=== PATIENT | male | born 1990 | race Two or more races ===

== ENCOUNTER → 2020-09-01 08:24 | Outpatient (BNVA) | payer OTHER, SELFPAY | PROVIDERS: PCP Physician Assistant; Visit Provider Urology | DX: N41.9 Inflammatory disease of prostate, unspecified (principal) | CPT/HCPCS: 99212 ==

== ENCOUNTER 2020-10-18 21:15 | Emergency (ER) | payer OTHER, SELFPAY ==
[2020-10-18 21:17] VITALS: BP 163/98; PULSE 100; RESP 18; TEMP 36.2; O2SAT 97; BMI 32.8
== END 2020-10-18 22:22 | disposition left against medical advice (07) ==
PROVIDERS: Emergency Provider Student in an Organized Health Care Education/Training Program
DX: R10.31 Right lower quadrant pain (principal)
CPT/HCPCS: 99282; 99283

== ENCOUNTER → 2020-11-03 10:29 | Outpatient (BNVA) | payer OTHER, SELFPAY | PROVIDERS: PCP Physician Assistant; Visit Provider Urology | DX: N41.9 Inflammatory disease of prostate, unspecified (principal) | CPT/HCPCS: 99212 ==

== ENCOUNTER 2020-11-10 08:55 | Outpatient (REF) | payer OTHER, SELFPAY ==
--- NOTE | 2020-11-10 08:59 | US_ITS ---
EXAMINATION: US ABDOMEN COMPLETE CLINICAL INFORMATION: Right lower quadrant pain. COMPARISON: CT abdomen and pelvis 03/02/2019. Ultrasound abdomen 01/19/2012. TECHNIQUE: Real-time imaging of the abdominal viscera. FINDINGS: PANCREAS: Normal. ABDOMINAL AORTA: The proximal, mid, and distal segments are normal in caliber. INFERIOR VENA CAVA: Visualized portions are normal. LIVER: Normal. The liver is normal in size. The liver contour is normal. Parenchymal echogenicity is normal. No focal hepatic lesion. There is no intrahepatic biliary duct dilatation seen. GALLBLADDER: The gallbladder wall thickness measures 0.19 cm in The gallbladder is physiologically distended without evidence of stones, sludge, polyps, wall thickening or pericholecystic fluid. COMMON BILE DUCT: Normal in caliber measuring 0.4 cm in diameter. RIGHT KIDNEY: There is anechoic cyst in midpole measuring 1.3 x 1.4 x 1.2 cm. No hydronephrosis or renal calculi. The kidney measures 11.3 cm in maximum dimension. LEFT KIDNEY: There is anechoic complex cyst midpole measuring 2.3 x 2.1 x 2.5 cm. The kidney measures 12.1 cm in maximum dimension. SPLEEN: Normal. The spleen measures 11.4 cm in maximum dimension. FREE FLUID: None. US/US abdomen complete IMPRESSION: Anechoic simple cyst midpole right kidney measuring 1.3 cm and a complex cyst midpole left kidney measuring 2.5 cm.
== END 2020-11-10 08:56 | disposition home or self-care (01) ==
LOC: HO.US 08:55
PROVIDERS: PCP Physician Assistant; Visit Provider Physician Assistant
DX: R10.30 Lower abdominal pain, unspecified (principal)
CPT/HCPCS: 76700

== ENCOUNTER → 2020-11-19 13:59 | Outpatient (BNVA) | payer OTHER, SELFPAY | PROVIDERS: Visit Provider Urology | DX: Z13.89 Encounter for screening for other disorder (principal) | CPT/HCPCS: 99212 ==

== ENCOUNTER → 2020-12-09 11:16 | Outpatient (BNVA) | payer OTHER, SELFPAY | PROVIDERS: PCP Physician Assistant; Visit Provider Urology ==

== ENCOUNTER → 2021-03-10 08:13 | Outpatient (BNVA) | payer OTHER, SELFPAY | PROVIDERS: PCP Physician Assistant; Visit Provider Urology ==

== ENCOUNTER 2021-08-16 10:07 | Outpatient (REF) | payer OTHER, SELFPAY | END 2021-08-16 10:08 | disposition home or self-care (01) | LOC: HO.LAB 10:07 | PROVIDERS: Visit Provider Hospitalist | DX: G44.83 Primary cough headache (principal); Z20.822 Contact with and (suspected) exposure to COVID-19 | CPT/HCPCS: U0003; U0005 ==

== ENCOUNTER → 2021-08-17 11:21 | Outpatient (BNVA) | payer OTHER, SELFPAY | PROVIDERS: Visit Provider Urology ==

== ENCOUNTER 2021-08-31 14:27 | Outpatient (REF) | payer OTHER, SELFPAY ==
--- NOTE | ~2021-08-31 | MR_ITS ---
EXAMINATION: MR PELVIS WITH AND WITHOUT INTRAVENOUS CONTRAST CLINICAL HISTORY: Inflammatory disorder of prostate and seminal vesicles with pain. COMPARISON: CT abdomen/pelvis dated from 03/02/2019 TECHNIQUE: Multiplanar multisequential MR images were obtained of the pelvis before and after intravenous contrast administration. 10 mL of Gadavist intravenous contrast were administered. FINDINGS: There is decreased T2 signal in the peripheral zone of the prostate which could be related with sequela of prostatitis. No intraprostatic collections or abscess are identified. The seminal vesicles are underdistended limiting their assessment. However, accounting for these limitations, no definite associated abnormalities are identified within the seminal vesicles. Specifically, there are no measurable lesions, abnormal enhancement or hemorrhagic products. There are no surrounding inflammatory changes. There are questionable engorged and prominent vessels in the scrotal sacs which could be related with varicoceles. The rectum and descending colon are underdistended limiting assessment of wall thickening and mural lesions. There are no associated surrounding inflammatory changes to suspect acute colitis or proctocolitis. The urinary bladder is mildly distended without focal abnormality. There is no adenopathy in the pelvis, small pelvic sidewall lymph nodes are nonspecific. No acute or aggressive osseous abnormalities. Lumbar spondylosis. Mild grade 1 retrolisthesis of L5 on S1 with associated disc bulge. Mild degenerative changes in the right SI joint with a few subchondral cysts. MR/MR pelvis wo/w con IMPRESSION: 1. Seminal vesicles are not optimally distended limiting their evaluation. However, accounting for these limitations, no definite abnormalities are identified within the seminal vesicles. 2. Decreased T2 signal in the peripheral zone of the prostate which is indeterminate and likely sequela of prostatitis. 3. Possible bilateral varicoceles, correlate with physical examination. 4. Lumbar spondylosis with retrolisthesis and disc bulging at L5-S1.
== END 2021-08-31 14:28 | disposition home or self-care (01) ==
LOC: HO.MRI 14:27
PROVIDERS: PCP Physician Assistant; Visit Provider Urology
DX: C61 Malignant neoplasm of prostate (principal); N49.0 Inflammatory disorders of seminal vesicle
CPT/HCPCS: 72197; A9585

== ENCOUNTER → 2021-09-20 09:41 | Outpatient (BNVA) | payer OTHER, SELFPAY | PROVIDERS: PCP Physician Assistant; Visit Provider Urology ==

== ENCOUNTER 2021-11-14 00:59 | Emergency (ER) | payer OTHER, SELFPAY ==
[2021-11-14 01:05] VITALS: BP 144/82; PULSE 84; RESP 18; TEMP 36.9; O2SAT 96; BMI 34.2
== END 2021-11-14 01:16 | disposition left against medical advice (07) ==
PROVIDERS: Emergency Provider Emergency Medicine; PCP Physician Assistant
DX: H93.8X2 Other specified disorders of left ear (principal)
CPT/HCPCS: 99281; 99282

== ENCOUNTER 2022-01-10 07:00 | Outpatient (RCR) | payer OTHER, SELFPAY ==
--- NOTE | 2021-10-20 13:42 | MHC.PT.EP ---
[facility] [place] Office [place] Office [place] Office [address] Audra Olivo [address] [facility] [phone] F: [phone] F: [phone] F: [phone] F: [phone] Physical Therapy Plan of Care Date of Evaluation: Date of Surgery: Diagnosis: Assessment: Pt was informed of examination process and he consented to full internal and external examination of his pelvic floor muscles. The patient arrived with subjective reports consistent with prostatitis and possible pudendal nerve entrapment because of his current pain presentation. External palpation was unremarkable. No painful palpation. Redness and irritation noted under his foreskin on the glans penis. The patient also had redness and irritation in his urethra opening. He was educated about avoiding soaps to this region, and to try a mild soap. A rectal exam was performed in order to assess the tone, strength, and coordination of his PFM. I was only able to examine the first and 2nd layer of the PFM due to the patient feeling uncomfortable and severe penile pain. However I was able to appreciate increased tone in his pelvic floor. I prescribed diaphragmatic breathing techniques to facilitate relaxation as well as a few gentle stretches. We will f/u in subsequent visits. Pt encouraged to do diaphragmatic breathing and other relaxation strategies such as guided imagery, positional relaxation before masturbation as a trial to see if this reduced pain with ejaculation. Pt will likely need manual therapy to PFM to promote relaxation. Frequency and Duration: The patient will be seen 1x/week Short Term Goals: 1. Pt education for diaphragmatic breathing in order to facilitate relaxation. 2. Pt education for improved posture and body mechanics to decrease pressure on the pelvic floor 3. Pt education on good hygiene soap use to avoid skin irritation. Senior Care Goals: 1. Pt to be able to ejaculate without pain 2. Pt to be able to participate in sexual activity without pelvic pain. 3. Pt to be able to urinate without pelvic pain. Treatment Plan: Modalities to reduce pain, spasms and effusion. Manual therapy to restore motion and function. Therapeutic exercise to improve strength and flexibility. Neuromuscular re-education for posture and balance. Therapeutic activities to return to functional activities of daily living. Electronically signed by: Please sign and return to therapist. Thank you for your referral.
== END 2022-02-14 14:12 | disposition home or self-care (01) ==
LOC: HO.PT 07:00
PROVIDERS: PCP Physician Assistant; Visit Provider Urology
DX: R10.2 Pelvic and perineal pain (principal); G89.29 Other chronic pain
CPT/HCPCS: 97110; 97112; 97140; 97161; 97530

== ENCOUNTER 2022-03-28 08:40 | Outpatient (REF) | payer OTHER, SELFPAY ==
[2022-03-28 09:48] LABS: Hematocrit 45.2 % (42.0-52.0); Hemoglobin 14.7 g/dl (14.0-18.0); Mean Corpuscular HGB Conc 32.5 g/dl (31.0-36.0); Mean Corpuscular Hemoglobin 28.1 pg (27.0-33.0); Mean Corpuscular Volume 86.4 fL (80.0-98.0); Mean Platelet Volume 9.6 fL (9.4-12.4); Platelet Count 279 X10*3/uL (160-400); Red Blood Count 5.23 X10*6/uL (4.60-5.80); Red Cell Distribution Width 12.6 % (11.0-16.0); White Blood Count 9.2 X10*3/uL (4.8-10.8)
[2022-03-28 09:56] LABS: Appearance Urine CLEAR; Color Urine YELLOW; Glucose Urine UA NEG (NEG); Leukocyte Esterase Urine NEG (NEG); Nitrite Urine NEG (NEG); Specific Gravity - Urine 1.025 (1.005-1.025); Urine Blood NEG (NEG); Urine Ketones NEG (NEG); Urine Protein NEG (NEG-TRACE)
[2022-03-28 10:25] LABS: Alanine Aminotransferase 30 U/L (0-40); Albumin Level 4.4 g/dL (3.5-5.0); Alkaline Phosphatase 81 U/L (39-117); Anion Gap 10 (12-20); Aspartate Amino Transferase 22 U/L (5-37); Bilirubin Total 1.4 mg/dL (0.0-1.0); Blood Urea Nitrogen 12 mg/dL (9-16); Calcium 9.4 mg/dL (8.4-10.2); Carbon Dioxide 25 mmol/L (22-29); Chloride 107 mmol/L (96-108); Cholesterol 183 mg/dL; Estimated Glomerular Filt Rate > 60; Glucose Fasting 93 mg/dL (60-99); HDL Cholesterol 44 mg/dL; LDL Cholesterol Calculated 92 mg/dl; Potassium 4.4 mmol/L (3.3-5.1); Sodium 138 mmol/L (135-145); Total Protein 7.4 g/dL (6.5-8.0); Triglycerides 239 mg/dL
[2022-03-28 10:33] LABS: Estimated Average Glucose 103 mg/dL; Hemoglobin A1c % 5.2 %
[2022-03-28 10:39] LABS: Urine Cytology See Pathology rpt
[2022-03-28 10:49] LABS: Prostate Specific Antigen Scr 0.39 ng/mL (<0.05-4.0); TSH reflex Free T4 1.52 uIU/mL (0.32-4.0)
[2022-03-28 14:34] LABS: CT PCR NOT DETECTED (Not Detect.); NG PCR NOT DETECTED (Not Detect.)
== END 2022-03-28 08:41 | disposition home or self-care (01) ==
LOC: HO.LAB 08:40
PROVIDERS: PCP Physician Assistant; Visit Provider Physician Assistant
DX: Z12.5 Encounter for screening for malignant neoplasm of prostate (principal); Z13.1 Encounter for screening for diabetes mellitus; E66.09 Other obesity due to excess calories; Z68.34 Body mass index [BMI] 34.0-34.9, adult; R82.90 Unspecified abnormal findings in urine; Z20.2 Contact with and (suspected) exposure to infections with a predominantly sexual mode of transmission; R30.0 Dysuria
CPT/HCPCS: 80053; 80061; 81003; 83036; 84153; 84443; 85027; 87086; 87491; 87591; 88112

== ENCOUNTER 2022-05-31 08:24 | Outpatient (REF) | payer OTHER, SELFPAY ==
--- NOTE | ~2022-05-31 | US_ITS ---
EXAMINATION: US PELVIS LIMITED (BLADDER) CLINICAL INFORMATION: Bad odor of urine. Prostatitis. COMPARISON: Pelvic MRI 08/31/2021. CT abdomen and pelvis 03/02/2019. TECHNIQUE: Real-time imaging of the bladder. FINDINGS: BLADDER: Well distended and normal. Bilateral ureteral jets are demonstrated. Prevoid bladder volume is 485 mL. Postvoid bladder volume is 22 mL. Prostate volume 22 mL. US/US bladder IMPRESSION: Normal appearance of the urinary bladder. Normal minimal post void residual.
== END 2022-05-31 08:25 | disposition home or self-care (01) ==
LOC: HO.HMGCX 08:24
PROVIDERS: PCP Physician Assistant; Visit Provider Physician Assistant
DX: R82.90 Unspecified abnormal findings in urine (principal)
CPT/HCPCS: 76857

== ENCOUNTER 2022-06-22 13:00 | Outpatient (RCR) | payer OTHER, SELFPAY ==
--- NOTE | 2022-05-02 10:16 | MHC.PT.EP ---
[facility] [place] Office [place] Office [place] Office [address] Audra Olivo [address] [phone] F: [phone] F: [phone] F: [phone] F: [phone] Physical Therapy Plan of Care Date of Evaluation: Date of Surgery: Diagnosis: pelvic pain Assessment: The patient arrived for his second round of Physical Therapy. He had to stop his last session due to moving. He has non relaxing pelvic floor. He has high resting tone in the 1st and 3nd layer of his pelvic floor. He did well relaxing with cues today which is improved from last bout of therapy. He had pain provocation with palpation of bilateral Obturator internus. He had penile pain provocation with palpation/manual pressure on his perineal body. His penile pain relaxes with proper diaphragmatic breathing. He needs practice on proper form of diaphragmatic breathing because he tends to clench. I reviewed how to use the pelvic wand with him and I introduced the idea of rectal dilation to help relax his pelvic floor since he tends to poorly tolerate pelvic wand. I recommended using wand daily. Frequency and Duration: The patient will be seen 2x/week x 6 weeks. Short Term Goals: 1. Improve his awareness of contraction vs relaxation of his PFM. 2. The patient to correctly coordinate diaphragmatic breathing. 3. The patient to increase his general exercise routine for central nervous system down training 4. Direct medical management to resolve fishy smelling urine. 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 Reduce pain with ejaculation. 2. Improve pain with urination 3. Manage pelvic pain with HEP. Treatment Plan: Modalities to reduce pain, spasms and effusion. Manual therapy to restore motion and function. Therapeutic exercise to improve strength and flexibility. Neuromuscular re-education for posture and balance. Therapeutic activities to return to functional activities of daily living. Electronically signed by: Please sign and return to therapist. Thank you for your referral.
--- NOTE | 2022-07-06 13:45 | MHC.PT.DC ---
[facility] [place] Office [place] Office [place] Office [address] Audra Olivo [address] [phone] F: [phone] F: [phone] F: [phone] F: [phone] Physical Therapy Discharge Report Diagnosis: pelvic pain Date of Surgery: NA Date of Evaluation: 05/02/22 Date of Discharge: 07/06/22 Treatments to Date: 4 Cancellations to Date: 1 No Shows to Date: 4 Discharge Status: Visit Non-compliance Discharge Summary: Jose attended only 4 PT visits. He as no showed his last 3 appointments. He is therefore being d/c from PT for non compliance. Electronically signed by: Nanette Lewis PT DPT Please sign and return to therapist. Thank you for your referral.
== END 2022-07-06 13:46 ==
LOC: HO.PT 13:00
PROVIDERS: PCP Physician Assistant; Visit Provider Urology
DX: R10.2 Pelvic and perineal pain (principal); G89.29 Other chronic pain
CPT/HCPCS: 97110; 97112; 97140; 97161; 97530

== ENCOUNTER 2022-06-26 00:44 | Emergency (ER) | payer OTHER, SELFPAY ==
[2022-06-26 00:46] VITALS: BP 152/100; PULSE 84; RESP 18; TEMP 36.7; O2SAT 97; BMI 34.2
--- NOTE | 2022-06-26 01:15 | ED.BACK ---
HPI - Back Pain/Injury General Chief Complaint: Back Pain/Injury Stated Complaint: Back pain Time Seen by Provider: 06/26/22 01:11 Source: patient Mode of arrival: ambulatory Limitations: no limitations History of Present Illness HPI Narrative: 32 yo male presents to the ER for middle and lower back pain after lifting heavy objects at work yesterday. He reports the pain worsened tonight and he was unable to sleep. He did not take any medications but he used topical icy hot with no improvement. He states the pain is worse on the right side and is worse with movement. He denies any radiation of the pain. No urinary symptoms. MD elicited complaint: back pain and back injury Onset (ago): day(s) (1) Timing: constant and progressively worsening Severity: moderate Pain scale (0-10): 7 Quality: stabbing and aching Location: right lower back Radiation: none Exacerbating factors: movement Relieving factors: none Associated symptoms: denies other symptoms Treatments prior to arrival: other medications Work related injury: Yes Related Data Previous Rx's Medication Instructions Recorded blood pressure test kit-large #1 ea 03/28/22 cyclobenzaprine 10 mg tablet 10 mg PO TID PRN muscle spasm #10 06/26/22 tabs ibuprofen 800 mg tablet 800 mg PO Q8H PRN pain #14 tabs 06/26/22 lidocaine 5 % topical patch 1 patch topical DAILY #15 ea 06/26/22 Allergies Allergy/AdvReac Type Severity Reaction Status Date / Time No Known Allergies Allergy Verified 06/26/22 00:46 [No Known Allergies*] Review of Systems Review of Systems: Constitutional: No Fever, No Chills Cardiovascular: No Chest Pain, No SOB, No Orthopnea, No Edema Respiratory: No Cough, No Sputum, No Wheezing, No dyspnea Gastrointestinal: No Nausea, No Vomiting, No Diarrhea, No abdominal Pain Genitourinary: No Dysuria, No Urinary Frequency, No Hematuria Musculoskeletal: No joint pain, + Myalgias Skin: No Skin Lesions, No rash Neuro: No Weakness, No Numbness, No Dizziness, No Headache Psych: No Anxiety/Panic, No Depression PMFSH Past Medical History Medical History Chronic prostatitis Orchalgia Testicle pain Urethritis Surgical History History of appendectomy Family History Family History Mother High blood pressure Father No problems noted. Social History Social History (Updated 03/28/22 @ 08:14 by Ronald Myrick PA-C) Housing: Apartment Alcohol intake: current Alcohol intake frequency: a few times a week Alcohol type: beer Patient Tobacco Use Status: Never used Tobacco e-Cigarette/Vaping Use: Never Used Second Hand Smoke Exposure: No Advance Directives: No Advance Directives Information Provided: Yes service: No Current occupational status: employed Current occupation: [employer] Current occupational exposures/hazards: No Cognitive needs: No Hearing needs: No Vision needs: No Physical Exam Vital Signs: Vital Signs: Last Vital Signs Temp 98.1 F 06/26/22 00:46 Pulse 84 06/26/22 00:46 Resp 18 06/26/22 00:46 BP 152/100 H 06/26/22 00:46 Pulse Ox 97 06/26/22 00:46 O2 Del Method 06/26/22 00:46 BMI result Body Mass Index 34.2 Appearance: Alert. Oriented X3. No acute distress. HEENT: normal external inspection Neck: Normal inspection. Neck supple. CVS: Normal heart rate and rhythm. Pulses normal. Respiratory: No respiratory distress. Breath sounds normal. Abdomen: Soft and nontender. +BS x4 Back: normal inspection, paraspinous muscle tenderness and spasm from middle thoracic area to the lumbar area. No midline tenderness. Skin: Skin warm and dry. Normal skin color. Normal skin turgor. No rashes. Extremities: No lower extremity edema. Neuro: Oriented X 3. No motor deficit. No sensory deficit. Steady gait Course Course Course Narrative: 32-year-old male presenting to the ER with back pain after doing heavy lifting at work. No falls or trauma. He has no red flag symptoms of low back pain. His pain does not radiate anion has palpable muscle spasm on examination. Will treat for muscle spasm and strain. Patient agrees with plan. Stable for DC. Discharge Plan Discharge Clinical Impression: Strain of lumbar region Patient Disposition: Home, Self-Care Instructions: Acute Low Back Pain (ED), Lower Back Exercises (ED) Additional Instructions: Your pain is most likely due to muscle strain and spasm. No bending, lifting or twisting. Use ice several times per day for 20 minutes at a time for the next 48 hours and then change to heat. Take medications as prescribed to help with pain and discomfort. Follow up with your Primary Care Doctor this week. If your pain worsens, if you develop new numbness, tingling, weakness, loss of function or incontinence call 911 or come back to the ER right away for evaluation. Prescriptions: New cyclobenzaprine 10 mg tablet 10 mg PO TID PRN (Reason: muscle spasm) Qty: 10 0RF ibuprofen 800 mg tablet 800 mg PO Q8H PRN (Reason: pain) Qty: 14 0RF lidocaine 5 % adhesive patch,medicated 1 patch topical DAILY Qty: 15 0RF Rx Instructions: leave on most painful area for up to 12 hrs No Action (DME) blood pressure test kit-large Kit See Rx Instructions .Route Qty: 1 0RF Rx Instructions: As directed Referrals: Ronald Myrick PA-C [Primary Care Provider] - Stand Alone Forms: Work/School Release
[2022-06-26] MEDS: Acetaminophen 325 MG TABLET 975 MG PO (01:52)
[2022-06-26] MEDS: Cyclobenzaprine HCl 10 MG TABLET PO (01:52)
[2022-06-26] MEDS: Ketorolac Tromethamine 30 MG/ML VIAL IM (01:53)
[2022-06-26 02:02] VITALS: BP 146/94; PULSE 86; RESP 19; O2SAT 96
== END 2022-06-26 02:04 | disposition home or self-care (01) ==
PROVIDERS: Emergency Provider Emergency Medicine; PCP Physician Assistant
DX: S39.012A Strain of muscle, fascia and tendon of lower back, initial encounter (principal); X50.0XXA Overexertion from strenuous movement or load, initial encounter; Y93.89 Activity, other specified; Y92.219 Unspecified school as the place of occurrence of the external cause; Y99.0 Civilian activity done for income or pay
CPT/HCPCS: 96372; 99283; 99284; J1885

== ENCOUNTER 2022-10-03 11:20 | Outpatient (REF) | payer OTHER, SELFPAY ==
[2022-10-04 13:20] LABS: CT PCR NOT DETECTED (Not Detect.); NG PCR NOT DETECTED (Not Detect.)
== END 2022-10-03 11:21 | disposition home or self-care (01) ==
LOC: HO.LNP 11:20
PROVIDERS: Visit Provider Internal Medicine
DX: N34.2 Other urethritis (principal)
CPT/HCPCS: 87491; 87591

== ENCOUNTER → 2022-11-03 11:28 | Outpatient (BNVA) | payer OTHER, SELFPAY | PROVIDERS: PCP Physician Assistant; Visit Provider Urology | DX: R10.2 Pelvic and perineal pain (principal) ==

== ENCOUNTER 2023-02-27 07:46 | Outpatient (REF) | payer OTHER, SELFPAY ==
[2023-03-06 11:30] LABS: Testosterone, Free 109.5 pg/mL (35.0-155.0); Testosterone, Total 421 ng/dL (250-1100)
== END 2023-02-27 07:47 | disposition home or self-care (01) ==
LOC: HO.LAB 07:46
PROVIDERS: PCP Physician Assistant; Visit Provider Urology
DX: N52.9 Male erectile dysfunction, unspecified (principal)
CPT/HCPCS: 36415; 84402; 84403

== ENCOUNTER → 2023-03-09 13:10 | Outpatient (BNVA) | payer OTHER, SELFPAY | PROVIDERS: PCP Physician Assistant; Visit Provider Urology ==

== ENCOUNTER 2024-02-08 14:58 | Outpatient (AMB) | payer OTHER, SELFPAY ==
--- NOTE | 2024-02-08 15:05 | A.OFFVIS_ITS ---
Intake Intake Visit Reasons: follow up Intake Note: Patient presents today for a follow-up medications: cialis Blood thinners: none Java Lead Developer Required: No Accompanied by: Self / Same As Patient Allergies No Known Allergies [No Known Allergies*] Allergy (Verified 02/08/24 15:06) Medication List - Last Reconciled 02/08/24 by Rachell Nelson MD blood pressure test kit-large As directed tadalafil (Cialis) 20 mg orally 2x a week as needed; tadalafil (Cialis) 5 mg PO DAILY HPI HPI Comments History of Present Illness Details 02/08/2024--Jaimie is here in follow-up he is prescribed Cialis daily for erectile disorder, he has been evaluated for symptoms of pelvic floor spasm. He states he is doing well voiding. Denies pelvic pain. He states he had unprotected sexual contact about 3 months ago in concerned about STD exposure and wants testing. Denies urinary symptoms of dysuria discharge. Plan STD check. Reinforced behavioral modification excessive caffeine or dietary bladder irritants. Continue Cialis 5 mg daily and 20 mg prn Review of chart: 11/03/22--Richie is a pleasant Hispan ic male. He is a patient of Dr. Myrick. He is seen for the following conditions - erectile dysfunction Performance anxie ty Prescribed daily tadalafil, prostatitis, chronic pelvic floor pain. He states he ran out of the cialis 5 m g and missed most of the PT appointments due to his work schedule, but he is still having pain and wants to be re-referred to PT Evaluation -- UA - no signs of infection. Plan - script for cialis 5 mg and 20 mg 2 x/week prn, refer to another Pelvic floor PT. Recheck testosterone levels. Imaging: MRI findings: 08/25 MRI no evidence of seminal vesiculitis or bladder changes testicular ultrasound, reported as, ..., normal epididymis, normal parenchyma and normal flow. Testicular/Scotal orchalgia-swelling: DNA analysis 10/2020 no growth Prostatitis type symptoms present throughout most of 2019 in into 2020 Has been treated with recurring courses of antibiotics DNA analysis has been done on prostatic fluid with Enterococcus located - Enterococcus faecalis and Streptococcu s. 03/09/23-- Shai is a 32-year-old male who presents to the office for discussion of testosterone lab results. HPI as above also the patient was given antibiotics for diagnosis of chronic prostatitis and script for Cialis was given during his last visit. States benefits with the therapy. The patient is having improvement in erections. The patient was refereed to pelvic floor therapist for chronic pelvic floor pain and was not given appointment by the PT office. Evaluation today: Blood: 25 Flo/uL, leukocytes: negative. Blood work results reviewed-- 02/27/23--total testosterone--421, free testosterone--109 Plan: Discussed to limit alcohol consumption. Continue Cialis 5 mg. Referral was written for physical therapist. Follow-up after 9 months. 02/08/24--Plan STD check. Reinforced beha vioral modification excessive caffeine or dietary bladder irritants. Continue Cialis 5 mg daily and 20 mg prn PFSH Medical History Orchalgia Urethritis Testicle pain Chronic prostatitis Surgical History History of appendectomy Family History Mother High blood pressure Father No problems noted. Social History Housing: Apartment Alcohol intake: current Alcohol intake frequency: a few times a week Alcohol type: beer Patient Tobacco Use Status: Never used Tobacco e-Cigarette/Vaping Use: Never Used Second Hand Smoke Exposure: No service: No Current occupational status: employed Current occupation: [employer] Current occupational exposures/hazards: No Cognitive needs: No Hearing needs: No Vision needs: No Review of Systems Const All systems reviewed & are unremarkable except as noted in HPI and below Reports no additional complaints Eyes Reports no additional complaints ENT Reports no additional complaints Card Reports no additional complaints Resp Reports no additional complaints GI Reports no additional complaints Reports as per HPI Musc Reports no additional complaints Skin/Breast Reports system reviewed and no additional complaints, except as documented Neuro Reports no additional complaints Psych Reports no additional complaints Endo Reports no additional complaints Thomas/Lymph Reports no additional complaints Aller/Immun Reports no additional complaints Results AMB Urinalysis, Automated UA Leukoctes 0 Amauri/uL Last Edit by Minh Díaz Ariella on 02/08/24 15:12 UA Nitrite Negative Last Edit by Minh Díaz Ariella on 02/08/24 15:12 UA Urobilinogen 0.2 mg/dL Last Edit by Minh Díaz A on 02/08/24 15:1 2 UA Protein 0 mg/dL Last Edit by Minh Díaz Ariella on 02/08/24 15:12 UA pH 7.0 Last Edit by Minh Díaz [facility] on 02/08/24 15:12 UA Blood 0 Flo/uL Last Edit by Minh Díaz Ariella on 02/08/24 15:12 UA Specific [place] 7.0 Last Edit by Minh Díaz [facility] on 02/08/24 15:12 UA Ketone Negative Last Edit by Minh Díaz Ariella on 02/08/24 15:12 UA Bilirubin 0 mg/dL Last Edit by Minh Díaz [facility] on 02/08/24 15:12 UA Glucose 0 mg/dL Last Edit by Minh Díaz [facility] on 02/08/24 15:12 Results Reviewed Results Reviewed: Laboratory Last Values Urine pH (Auto) 7.0 02/08/24 15:07 Specific [place] (Auto) 7.0 02/08/24 15:07 Urine Protein (Auto) 0 mg/dL 02/08/24 15:07 Glucose (UA)(Auto) 0 mg/dL 02/08/24 15:07 Urine Ketones (Auto) Negative 02/08/24 15:07 Urine Blood (Auto) 0 Flo/uL 02/08/24 15:07 Urine Nitrite (Auto) Negative 02/08/24 15:07 Urine Bilirubin (Auto) 0 mg/dL 02/08/24 15:07 Urine Urobilinogen (Auto) 0.2 mg/dL 02/08/24 15:07 Leukocyte Esterase (Auto) 0 Amauri/uL 02/08/24 15:07 Assessment & Plan Assessment & Plan (1) Possible exposure to STD: Code(s): Z20.2 - Contact with and (suspected) exposure to infections with a predominantly sexual mode of transmission (2) Spastic pelvic floor syndrome: Code(s): 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 Reinforced behavioral modification excessive caffeine or dietary bladder irritants. Continue Cialis 5 mg daily and 20 mg prn Orders: Orders Syphilis Screen Today Z20.2 - Contact with and (suspected) exposure to infections with a predominantly sexual mode of transmission Hepatitis B Surface Antigen Today Z20.2 - Contact with and (suspected) exposure to infections with a predominantly sexual mode of transmission Herpes Simplex Virus Ab IgG Today Z20.2 - Contact with and (suspected) exposure to infections with a predominantly sexual mode of transmission AMB Urinalysis Automated Today Z13.9 - Encounter for screening, unspecified HIV Ab/Ag Today Z20.2 - Contact with and (suspected) exposure to infections with a predominantly sexual mode of transmission Hepatitis C Antibody Today Z20.2 - Contact with and (suspected) exposure to infections with a predominantly sexual mode of transmission Medications: Refilled tadalafil (Cialis) 20 mg orally 2x a week as needed; 30 tabs 3RF tadalafil (Cialis) 5 mg PO DAILY 90 tabs 3RF Patient Instructions: The patient had an opportunity to ask questions regarding treatment plan. All questions were answered. No major barriers to understanding were identified. The patient expressed understanding and agreement with the above treatment plan. The patient is aware they should contact our office by phone for worsening of their current condition or the appearance of new symptoms. Compliance is encouraged with any medications and followup testing that is ordered. It is a privilege to be allowed the opportunity to participate in the urologic care of your patient. If you have any questions or concerns regarding treatment for the above conditions please do not hesitate to contact me. The office telephone contact is [phone]. This note is constructed in part using voice recognition software. While every effort has been made to ensure accuracy hypercil core transformer assembler errors may have been included. 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
== END 2024-02-08 15:41 | disposition home or self-care (01) ==
PROVIDERS: Visit Provider Urology
DX: Z20.2 Contact with and (suspected) exposure to infections with a predominantly sexual mode of transmission (principal); R19.8 Other specified symptoms and signs involving the digestive system and abdomen; N52.1 Erectile dysfunction due to diseases classified elsewhere; Z13.9 Encounter for screening, unspecified
CPT/HCPCS: 99214

== ENCOUNTER 2024-02-08 14:58 | Outpatient (REF) | payer OTHER, SELFPAY ==
[2024-02-08 18:19] LABS: CT PCR NOT DETECTED (Not Detect.); NG PCR NOT DETECTED (Not Detect.)
== END 2024-02-08 14:59 | disposition home or self-care (01) ==
LOC: HO.LAB 14:58
PROVIDERS: Visit Provider Urology
DX: Z20.2 Contact with and (suspected) exposure to infections with a predominantly sexual mode of transmission (principal); R19.8 Other specified symptoms and signs involving the digestive system and abdomen; N52.1 Erectile dysfunction due to diseases classified elsewhere
CPT/HCPCS: 0353U; 81003

== ENCOUNTER 2024-02-13 07:48 | Outpatient (REF) | payer OTHER, SELFPAY ==
[2024-02-13 10:11] LABS: Syphilis Screen Nonreactive (Nonreactive)
[2024-02-13 10:13] LABS: HBsAGNum1 0.34 S/CO (0.00-0.99); HIV AB/AG Nonreactive (Nonreactive); HIV Num 1 0.06 S/CO (0.00-0.99); Hepatitis B Surface Antigen Negative (Negative); ~HepC Num1 0.17 S/CO (0.00-0.79); ~Hepatitis C Antibody Nonreactive (Nonreactive)
[2024-02-14 12:18] LABS: Herpes Simplex Type 2 IgG <0.90 index
== END 2024-02-13 07:49 | disposition home or self-care (01) ==
LOC: HO.LAB 07:48
PROVIDERS: PCP Physician Assistant; Visit Provider Urology
DX: Z11.4 Encounter for screening for human immunodeficiency virus [HIV] (principal); Z20.2 Contact with and (suspected) exposure to infections with a predominantly sexual mode of transmission
CPT/HCPCS: 36415; 86695; 86696; 86780; 86803; 87340; 87389

== ENCOUNTER 2024-05-26 11:53 | Emergency (ER) | payer BC, SELFPAY ==
--- NOTE | ~2024-05-26 | XR_ITS ---
EXAMINATION: XR CHEST CLINICAL INFORMATION: Chest pain COMPARISON: RIBS and chest 03/21/2014 TECHNIQUE: 2 views of the chest were obtained. FINDINGS: No significant abnormality is noted involving the heart, lungs, mediastinum, bony thorax or soft tissues. XR/XR chest 2V IMPRESSION: Unremarkable examination.
--- NOTE | 2024-05-26 11:58 | ECG_ITS ---
Test Reason : palpatations Blood Pressure : / mmHG Vent. Rate : 067 BPM Atrial Rate : 067 BPM P-R Int : 152 ms QRS Dur : 146 ms QT Int : 418 ms P-R-T Axes : 010 026 006 degrees QTc Int : 441 ms Normal sinus rhythm Right bundle branch block Abnormal ECG When compared with ECG of 25-FEB-2009 14:42, Right bundle branch block has replaced Incomplete right bundle branch block Referred By: Maribel Hahn Electronically Signed By:NIMCO RIVERA
[2024-05-26 12:11] VITALS: BP 145/73; PULSE 74; RESP 18; TEMP 36.8; O2SAT 96; BMI 36.3
--- NOTE | 2024-05-26 12:12 | ED_ITS ---
HPI - Chest Pain General Chief Complaint: Arrhythmia/Palpitations Stated Complaint: heart palpitations? light headed this AM Time Seen by Provider: 05/26/24 17:38 Source: patient Mode of arrival: ambulatory Limitations: no limitations History of Present Illness ED Provider: Dr. Rose Mary Varela HPI narrative: Patient comes to the emergency room complaining of palpitations. Patient states that over the last couple of days, he feels a bit lightheaded when they happened. No chest pain. Patient attributes his symptoms to a large intake of caffeine. Time, patient has no palpitations chest pain or shortness of breath or dizziness. Related Data Previous Rx's ?Medication ?Instructions ?Recorded blood pressure test kit-large #1 ea 03/28/22 tadalafil 20 mg tablet (Cialis) 20 mg PO .COMPLEX #30 tabs 02/08/24 tadalafil 5 mg tablet (Cialis) 5 mg PO DAILY #90 tabs 02/08/24 Allergies Allergy/AdvReac Type Severity Reaction Status Date / Time No Known Allergies Allergy Verified 05/26/24 12:15 [No Known Allergies*] Review of Systems 2 Review of Systems: Constitutional : No Weight loss, No Fever, No Chills, No Night Sweats, No Fatigue, No Malaise ENT/Mouth : No Hearing loss, No Ear Pain, No Nasal Congestion, No Sinus Pain, No Hoarseness, No sore throat, No Rhinorrhea, No Swallowing Difficulty Eyes: No Eye Pain, No Swelling, No Redness, No Foreign Body, No Discharge, No Vision Changes Cardiovascular : No Chest Pain, No SOB, No Dyspnea on Exertion, No Orthopnea, No Edema, complaining of intermittent Palpitations Respiratory : No Cough, No Sputum, No Wheezing, No Smoke Exposure, No Dyspnea Gastrointestinal : No Nausea, No Vomiting, No Diarrhea, No Constipation, No abdominal Pain, No Hematochezia, No Melena Genitourinary : no irregular bleeding, No Dysuria, No Urinary Frequency, No Hematuria, No Urinary Incontinence, No Urgency, No Flank Pain, No Urinary Flow Changes, No Hesitancy Musculoskeletal : No joint pain, No Myalgias, No Joint Swelling Skin : No Skin Lesions, No rash Neuro : No Weakness, No Numbness, No Paresthesias, No Loss of Consciousness, No Dizziness, No Headache Psych : No Anxiety/Panic, No Depression, No SI/HI/AH/VH, No Social Issues, Heme/Lymph: No Bruising, No Bleeding,No Lymphadenopathy Endocrine : No Polyuria, No Polydipsia, No Temperature Intolerance [facility] Past Medical History Medical History Orchalgia Urethritis Testicle pain Chronic prostatitis Surgical History History of appendectomy Family History Family History Mother High blood pressure Father No problems noted. Social History Social History Housing: Apartment Alcohol intake: current Alcohol intake frequency: a few times a week Alcohol type: beer Patient Tobacco Use Status: Never used Tobacco Smoked in Last 30 Days: No e-Cigarette/Vaping Use: Never Used Second Hand Smoke Exposure: No Use of substances other than those prescribed or required for medical reasons: No Advance Directives: No Advance Directives Information Provided: No Do you have a plan to hurt others: No Plan service: No Current occupational status: employed Current occupation: [employer] Current occupational exposures/hazards: No Cognitive needs: No Hearing needs: No Vision needs: No Physical Exam 2 Vital Signs: Vital Signs: Last Vital Signs Temp 98.1 F 05/26/24 17:23 Pulse 61 05/26/24 18:48 Resp 15 05/26/24 17:23 BP 140/78 H 05/26/24 18:48 Pulse Ox 95 05/26/24 17:23 O2 Del Method Room Air 05/26/24 17:23 BMI result Body Mass Index 36.3 Const: Other: Appearance: Alert. Oriented X3. No acute distress. Eyes: Pupils equal, round and reactive to light. ENT: Pharynx normal. Neck: Normal inspection. Neck supple. No lymph nodes noted. No crepitus CVS: Normal heart rate and rhythm. Pulses normal. Normal S1 and S2 Respiratory: No respiratory distress. Breath sounds normal. No Wheezing. No rales Abdomen: Soft and nontender. No rigidity. No distention. Skin: Skin warm and dry. Normal skin color. Normal skin turgor. Extremities: No lower extremity edema. No Lacerations. No Rash Neuro: Oriented X 3. No motor deficit. No sensory deficit. Moving all extremities. No slurred speech. CN 2 through 12 grossly intact Psych: calm, cooperative, normal affect Course Course Course Narrative: This is an RME: Additional HPI, ROS, PE not included below will be deferred to primary provider. RME assessment and note performed by: Maribel Hahn PA-C This is a [id number], with no known medical problems, who presents to the ER with a complaint of lightheadedness and palpitations x 2 months. Endorsing chest pain and SOB. Symptoms come and go. Reports that he is drinking 400mg of caffeine per day. Smokes hookah on the weekend. No other drug use. Plan: Labs, EKG, CXR, further ER evaluation needed. Medical Decision Making Medical Decision Making [facility] Narrative: -my interpretation of EKG: Normal sinus rhythm, right bundle branch block, heart rate 67, no ST segment elevation, nonspecific T-wave inversion in lead III, QTC 441 -my interpretation of labs, normal hematology, chemistry, LFTs -my interpretation of chest x-ray, no obvious abnormality. -I discussed with the patient that he can slowly decrease his intake of caffeine and see if he has any further palpitations. If he continues having palpitations, to follow-up with his primary care physician, as he may need a Holter monitor evaluation. -orthostatic vitals: Negative Differential Diagnosis Differential Diagnoses: The differential diagnosis associated with the presentation includes (Anxiety, palpitations, SVT) Admission/Observation Consideration of admission/observation: Escalation of care including admission/observation considered (Given patient's symptoms, observation was considered) Lab Data [facility] Lab Attestation statement: I reviewed the patient's lab results. 05/26/24 12:28 05/26/24 12:28 Labs: Lab Results 05/26/24 Range/Units 12:28 WBC 8.1 (4.8-10.8) X10*3/uL RBC 4.86 (4.60-5.80) X10*6/uL Hgb 14.0 (14.0-18.0) g/dl Hct 41.6 L (42.0-52.0) % MCV 85.6 (80.0-98.0) fL MCH 28.8 (27.0-33.0) pg MCHC 33.7 (31.0-36.0) g/dl RDW 12.6 (11.0-16.0) % Plt Count 249 (160-400) X10*3/uL MPV 9.2 L (9.4-12.4) fL Immature Gran % (Auto) 0.4 (0.0-0.4) % Neut % (Auto) 52.1 (45-73) % Lymph % (Auto) 34.8 (20-40) % [place] % (Auto) 8.4 (2-11) % Eos % (Auto) 3.1 (0-4) % Baso % (Auto) 1.2 (0-2) % Lymph # (Auto) 2.8 (1.2-4.9) X10*3/uL [place] # (Auto) 0.7 (0.1-1.2) X10*3/uL Eos # (Auto) 0.3 (0.0-0.4) X10*3/uL Baso # (Auto) 0.1 (0.0-0.2) X10*3/uL Abs Immat Gran (auto) 0.03 (0.00-0.03) X10*3/uL Absolute Neuts (auto) 4.2 (2.0-8.3) x10*3/uL Absolute Nucleated RBC 0.000 (0.0-0.012) X10*3/uL Nucleated RBC % (auto) 0.0 (0.0-0.2) /100WBC PT 12.3 (11.1-13.3) SEC INR 1.0 (0.9-1.1) Sodium 137 (135-145) mmol/L Potassium 3.8 (3.3-5.1) mmol/L Chloride 108 (96-108) mmol/L Carbon Dioxide 23 (22-29) mmol/L Anion Gap 10 L (12-20) BUN 14 (9-16) mg/dL Creatinine 1.06 (0.5-1.4) mg/dL Estim Creat Clear Calc 128.4 Estimated GFR > 60 Random Glucose 91 (60-115) mg/dL Calcium 9.2 (8.4-10.2) mg/dL Magnesium 2.1 (1.6-2.6) mg/dL Total Bilirubin 1.2 H (0.0-1.0) mg/dL Direct Bilirubin 0.2 (0.0-0.5) mg/dL AST 22 (5-37) U/L ALT 31 (0-40) U/L Alkaline Phosphatase 70 (39-117) U/L Troponin I High Sens < 2.7 (<3.5-35.0) ng/L Total Protein 7.0 (6.5-8.0) g/dL Albumin 4.2 (3.5-5.0) g/dL Lipase 40 (8-78) U/L TSH 1.28 (0.32-4.0) uIU/mL Independent Interpretation I performed an independent interpretation of an: EKG and Plain X-Ray Radiology Impression Discussion of test interpretation with radiology: I have reviewed the radiologist's reading. Radiologist Impression: FINDINGS: No significant abnormality is noted involving the heart, lungs, mediastinum, bony thorax or soft tissues. XR/XR chest 2V IMPRESSION: Unremarkable examination. Critical Care Time Critical Care Time Critical Care Time: Yes Total Critical Care Time: 30 Attestation: I have personally provided critical care time. Time includes review of lab data, radiology results, discussion with consultants, and monitoring for potential decompensation. Intervention performed as documented. Discharge Plan Discharge Clinical Impression: Palpitations Patient Disposition: Home, Self-Care Instructions: Heart Palpitations (ED) Additional Instructions: Please follow-up with your primary care physician tomorrow. If you have any worsening or new symptoms, please return to the emergency room or call 911 Prescriptions: No Action (DME) blood pressure test kit-large Kit See Rx Instructions .Route Qty: 1 0RF Rx Instructions: As directed tadalafil [Cialis] 5 mg tablet 5 mg PO DAILY Qty: 90 3RF tadalafil [Cialis] 20 mg tablet 20 mg PO .COMPLEX Qty: 30 3RF Rx Instructions: 20 mg orally 2x a week as needed; Print Language: Icelandic
[2024-05-26 12:32] LABS: MANUAL DIFF FLAG NO
[2024-05-26 12:35] LABS: Basophils Absolute Auto 0.1 X10*3/uL (0.0-0.2); Basophils Percent Auto 1.2 % (0-2); Eosinophils Absolute Auto 0.3 X10*3/uL (0.0-0.4); Eosinophils Percent Auto 3.1 % (0-4); Hematocrit 41.6 % (42.0-52.0); Imm Gran Abs Auto 0.03 X10*3/uL (0.00-0.03); Imm Gran Pct Auto 0.4 % (0.0-0.4); Lymphocytes Absolute Auto 2.8 X10*3/uL (1.2-4.9); Lymphocytes Percent Auto 34.8 % (20-40); Mean Corpuscular HGB Conc 33.7 g/dl (31.0-36.0); Mean Corpuscular Hemoglobin 28.8 pg (27.0-33.0); Mean Corpuscular Volume 85.6 fL (80.0-98.0); Mean Platelet Volume 9.2 fL (9.4-12.4); Monocytes Absolute Auto 0.7 X10*3/uL (0.1-1.2); Monocytes Percent Auto 8.4 % (2-11); Neutrophils Absolute Auto 4.2 x10*3/uL (2.0-8.3); Neutrophils Percent Auto 52.1 % (45-73); Platelet Count 249 X10*3/uL (160-400); Red Blood Count 4.86 X10*6/uL (4.60-5.80); Red Cell Distribution Width 12.6 % (11.0-16.0); White Blood Count 8.1 X10*3/uL (4.8-10.8)
[2024-05-26 12:39] LABS: Prothrombin Time 12.3 SEC (11.1-13.3)
[2024-05-26 12:55] LABS: Alanine Aminotransferase 31 U/L (0-40); Albumin Level 4.2 g/dL (3.5-5.0); Alkaline Phosphatase 70 U/L (39-117); Anion Gap 10 (12-20); Aspartate Amino Transferase 22 U/L (5-37); Bilirubin Direct 0.2 mg/dL (0.0-0.5); Bilirubin Total 1.2 mg/dL (0.0-1.0); Blood Urea Nitrogen 14 mg/dL (9-16); Calcium 9.2 mg/dL (8.4-10.2); Carbon Dioxide 23 mmol/L (22-29); Chloride 108 mmol/L (96-108); Creatinine Clr Calc Pharmacy 128.4; Estimated Glomerular Filt Rate > 60; Glucose Random 91 mg/dL (60-115); Lipase 40 U/L (8-78); Magnesium 2.1 mg/dL (1.6-2.6); Potassium 3.8 mmol/L (3.3-5.1); Sodium 137 mmol/L (135-145)
[2024-05-26 12:57] LABS: Troponin-I High Sensitivity < 2.7 ng/L (<3.5-35.0)
[2024-05-26 13:09] LABS: TSH reflex Free T4 1.28 uIU/mL (0.32-4.0)
[2024-05-26 17:23] VITALS: BP 144/77; PULSE 60; RESP 15; TEMP 36.7; O2SAT 95
[2024-05-26 18:47] VITALS: BP 137/78; PULSE 68
[2024-05-26 18:48] VITALS: BP 139/80; BP 140/78; PULSE 57; PULSE 61
[2024-05-26 19:42] VITALS: BP 139/80; PULSE 61; RESP 16; TEMP 36.7; O2SAT 95
== END 2024-05-26 19:43 | disposition home or self-care (01) ==
PROVIDERS: Physician Assistant Medical; Emergency Provider Emergency Medicine; PCP Physician Assistant
DX: R07.89 Other chest pain (principal); R00.2 Palpitations; Z79.899 Other long term (current) drug therapy
CPT/HCPCS: 36415; 71046; 80048; 80076; 83690; 83735; 84443; 84484; 85025; 85610; 93005; 99283; 99285

== ENCOUNTER → 2024-05-26 11:58 | Outpatient (BNV) | payer BC, SELFPAY | PROVIDERS: PCP Physician Assistant; Visit Provider Internal Medicine | DX: R94.31 Abnormal electrocardiogram [ECG] [EKG] (principal) | CPT/HCPCS: 93010 ==

== ENCOUNTER 2024-06-03 08:23 | Outpatient (AMB) | payer BC, SELFPAY ==
[2024-06-03 08:40] VITALS: BP 130/82; PULSE 61; O2SAT 96; BMI 35.8
--- NOTE | 2024-06-03 08:40 | A.OFFPC_ITS ---
Vital Signs 06/03/24 08:40 Height 5 ft 11 in Weight 257 lb BMI 35.8 BP 130/82 Blood Pressure Location Lt brachial Position Sitting Pulse 61 Pulse Source Pulse Oximeter Pulse Oximetry (%) 96 Oxygen Delivery Method Room Air Intake Visit Reasons: [place] [facility] [place] Heart Palpatations, Lightheadedness Allergies No Known Allergies [No Known Allergies*] Allergy (Verified 06/03/24 08:41) Tobacco use date assessed: 06/03/24 Dental Screening Dental Screen Date: 06/03/24 Did you have a dental visit in the last 12 months?: Yes Did you have a dental problem in the last 6 months where you did not have access to dental care?: No Was dental information given to patient?: Patient has dentist HPI HPI Comments History of Present Illness Details 33 y/o male patient who presents to the clinic today for EDF. He [place] and [place] [facility] [place]and light[place]. He does Admit to drinking lots of Caffeine with Energy Drinks daily. He also admit to being under tremendous stress in life - he works 3 jobs. He has also been going to the Gym daily for Cardio. Today Pt reports that symptoms have subsided. ECG and Chest Xray normal. [facility] Medical History Orchalgia Urethritis Testicle pain Chronic prostatitis Surgical History History of appendectomy Family History Mother High blood pressure Father No problems noted. Social History Housing: Apartment Alcohol intake: current Alcohol intake frequency: a few times a week Alcohol type: beer Patient Tobacco Use Status: Never used Tobacco Tobacco use type: Cigarette e-Cigarette/Vaping Use: Never Used Second Hand Smoke Exposure: No service: No Current occupational status: employed Current occupation: [employer] Current occupational exposures/hazards: No Cognitive needs: No Hearing needs: No Vision needs: No Questionnaire PHQ-9 Over the last 2 weeks, how often have you been bothered by any of the following problems? 1. Little interest or pleasure in doing things: not at all 2. Feeling down, depressed, or hopeless: not at all 3. Trouble falling or staying asleep, or sleeping too much: not at all 4. Feeling tired or having little energy: not at all 5. Poor appetite or overeating: not at all 6. Feeling bad about yourself - or that you are a failure or have let yourself or your family down: not at all 7. Trouble concentrating on things, such as reading the newspaper or watching television: not at all 8. Moving or speaking so slowly that other people could have noticed. Or the opposite - being so fidgety or restless that you have been moving around a lot more than usual: not at all 9. Thoughts that you would be better off or of hurting yourself in some way: not at all Total score: 0 Depression Screening Interpretation: Negative Depression Screening Done: Yes Source: Developed by Drs. Rodrick Mackay, Elis Velasquez, Ashok Taylor and colleagues, with an educational kia from [employer]. Thrive Questionnaire Date Thrive assessed: 06/03/24 I am a: Patient What is your living situation today?: I have a steady place to live Within the past 12 months, did the food you bought not last and you didn't have the money to get more?: Never true Within the past 12 months, did you worry whether your food would run out before you got money to buy more?: Never true Do you have trouble paying for medicines?: No Do you have trouble getting transportation to medical appointments?: No Do you have trouble paying your heating and electricity bill?: No Do you have trouble taking care of your child, family member or friend?: No Do you have trouble with day-to-day activities such as bathing, preparing meals, shopping, managing finances, etc.?: No Are you currently unemployed and looking for a job?: No Are you interested in more education?: No Currently or been in a relationship where the following occur: No concerns reported THRIVE Score: 0 AUDIT C Alcohol Use Questionnaire (AUDIT-C) 1. How often do you have a drink containing alcohol?: 2-4 times a month 2. How many drinks containing alcohol do you have on a typical day when you are drinking?: 1 or 2 3. How often do you have six or more drinks on one occasion?: Never Total Score: 2 KRISS-7 AMB Questionnaire KRISS-7 Date KRISS - 7 assessed: 06/03/24 Feeling nervous, anxious, or on edge: 1 = Several days Not being able to stop or control worryin = Not at all Worrying too much about different things: 0 = Not at all Trouble relaxin = Not at all Being so restless that it is hard to sit still: 0 = Not at all Becoming easily annoyed or irritable: 0 = Not at all Feeling afraid as if something awful might happen: 0 = Not at all Total KRISS-7 score (0-4 normal; 5-9 mild; 10-14 moderate; 15-21 severe): 1 Source: Developed by Drs. Rodrick Mackay, Elis Velasquez, Ashok Taylor and colleagues, with an educational kia from [employer]. Review of Systems Const All systems reviewed & are unremarkable except as noted in HPI and below Physical exam (Primary Care) Vital Signs: Last Vital Signs Pulse 61 06/03/24 08:40 BP 130/82 06/03/24 08:40 Pulse Ox 96 06/03/24 08:40 Oxygen Delivery Method Room Air 06/03/24 08:40 BMI result Body Mass Index 35.8 Tobacco/Smoking Status: Tobacco use Status Tobacco use date assessed 06/03/24 06/03/24 08:47 Patient Tobacco Use Status Never used Tobacco 06/03/24 08:47 Tobacco use type Cigarette 06/03/24 08:47 e-Cigarette/Vaping Use Never Used 06/03/24 08:47 PHQ-9: PHQ-9 Score PHQ-9: Total score 0 06/03/24 09:07 Depression Screening Interpretation: Negative Thrive Assessment: Date of Thrive Assessment Date Thrive assessed 06/03/24 06/03/24 08:47 Currently or been in a relationship where the following occur: No concerns reported Const General: comfortable and no acute distress Nutritional Appearance: obese Orientation/consciousness: patient oriented x3 Resp Effort & Inspection: normal respiratory effort and able to speak in complete sentences Auscultation: clear to auscultation bilaterally Cardio Heart sounds: S1 normal heart sound present and S2 normal heart sound present Neuro General: patient oriented x3, gait normal and moves all extremities Vital Signs: Last Vital Signs Pulse 61 06/03/24 08:40 BP 130/82 06/03/24 08:40 Pulse Ox 96 06/03/24 08:40 Oxygen Delivery Method Room Air 06/03/24 08:40 BMI result Body Mass Index 35.8 Const General: comfortable and no acute distress Nutritional Appearance: obese Orientation/consciousness: patient oriented x3 Resp Effort & Inspection: normal respiratory effort and able to speak in complete sentences Auscultation: clear to auscultation bilaterally Cardio Heart sounds: S1 normal heart sound present and S2 normal heart sound present Neuro General: patient oriented x3, gait normal and moves all extremities Assessment and Plan Assessment & Plan (1) Palpitations: Code(s): R00.2 - Palpitations Plan: Will continue to monitor for now Advised cutting down on Caffeine Advised to avoid Stress Avoid Energy drinks. Advised to Purchase Smart Watch to monitor HR daily Advised to contact PCP for Cardio Ref if symptoms do not get better. Coding Level of Care Code Est Pt Level 4 (87654) Diagnoses Palpitations R00.2 Comment Spent 20 minutes reviewing hospital notes.
== END 2024-06-03 09:24 | disposition home or self-care (01) ==
PROVIDERS: PCP Physician Assistant; Visit Provider Nurse Practitioner Family
DX: R00.2 Palpitations (principal)
CPT/HCPCS: 99214

== ENCOUNTER 2024-09-20 09:06 | Emergency (ER) | payer BC, SELFPAY ==
--- NOTE | ~2024-09-20 | XR_ITS ---
EXAMINATION: XR LUMBOSACRAL SPINE CLINICAL INFORMATION: Pain status post fall COMPARISON: None available. TECHNIQUE: Three views of the lumbosacral spine. FINDINGS: Minor endplate spurring particularly at L5 and S1 without disc space narrowing. No spondylolysis. The vertebral bodies and posterior elements are normal. The disc spaces are preserved and the vertebral alignment is normal. The paraspinal soft tissues are normal. XR/XR lumbar spine 2-3V IMPRESSION: No acute findings. Mild degenerative disc disease as above. Electronically signed by: Manfred Wolf MD 09/20/2024 11:53 AM [facility]
[2024-09-20 09:07] VITALS: BP 146/93; PULSE 86; RESP 20; TEMP 36.6; O2SAT 95; BMI 37.8
--- NOTE | 2024-09-20 10:11 | ED.BACK ---
HPI - Back Pain/Injury General Chief Complaint: Back Pain/Injury Stated Complaint: fall, back pain Time Seen by Provider: 09/20/24 09:43 Source: patient Mode of arrival: ambulatory Limitations: no limitations History of Present Illness ED Provider: DEZ LONG PA-C HPI Narrative: 34 year old male with pmhx significant for prostatitis, erectile dysfunction, HTN presents to the ED today for evaluation of low back pain s/p mechanical fall 5 days ago. Patient reports rolling his left ankle while walking, causing him to fall over onto his lower back. No head strke. No LOC. Not on anticoagulation. He was not medically evaluated after the fall. States the swelling to his ankle has completely resolved. Able to ambulate/ bear weight on LLE without pain. No complaints regarding ankle. Admits he did not have lower back pain until the following day. Believes the pain worsened while he was doing cardio the following day, walking on an incline for a long period of time. Pain is localized to mid-lower back. Does not radiate down his LEs. No additional trauma/ injury/ fall since initial injury. Reports taking two Motrin PILE TRIMMER in ED. Denies hx of spinal surgery. Denies IV drug use. Denies fever, chills, neck pain, bowel or bladder incontinence or retention, numbness/tingling/weakness in the lower extremities, dysuria, hematuria, saddle anesthesia. Related Data Home Medications ?Medication ?Instructions ?Recorded ?Confirmed tadalafil 10 mg tablet (Cialis) 10 mg PO DAILY PRN 06/03/24 Previous Rx's ?Medication ?Instructions ?Recorded blood pressure test kit-large #1 ea 03/28/22 tadalafil 20 mg tablet (Cialis) 20 mg PO .COMPLEX #30 tabs 02/08/24 tadalafil 5 mg tablet (Cialis) 5 mg PO DAILY #90 tabs 02/08/24 Allergies Allergy/AdvReac Type Severity Reaction Status Date / Time No Known Allergies Allergy Verified 09/20/24 09:10 [No Known Allergies*] Review of Systems Review of Systems: Constitutional: No fever, chills, fatigue, night sweats, weight changes ENT/Mouth: No ear pain, hearing loss, nasal congestion, sinus pain, rhinorrhea, sore throat Eyes: No eye pain, swelling, redness, vision changes, discharge Cardio: No chest pain, palpitations, [place], orthopnea, peripheral edema Pulm: No SOB, cough, sputum, wheezing, dyspnea, hemoptysis GI: No nausea, vomiting, hematemesis, abdominal pain, diarrhea, constipation, hematochezia, melena : No irregular bleeding, dysuria, frequency, urgency, hesitancy, hematuria, flank pain, urinary flow changes, urinary incontinence or retention MSK: No neck pain, joint pain, myalgias, +back pain Skin: No lesions, rashes Neuro: No weakness, numbness, paresthesias, LOC, dizziness, headache Psych: No anxiety/panic, depression, SI/HI, AH/VH All other systems reviewed and are negative. [facility] Past Medical History Attestation statement: The following information was validated with the patient. Source: old records reviewed and nursing notes reviewed Medical History Orchalgia Urethritis Testicle pain Chronic prostatitis Surgical History History of appendectomy Family History Family History Mother High blood pressure Father No problems noted. Social History Social History Housing: Apartment Alcohol intake: current Alcohol intake frequency: a few times a week Alcohol type: beer Patient Tobacco Use Status: Never used Tobacco Tobacco use type: Cigarette e-Cigarette/Vaping Use: Never Used Second Hand Smoke Exposure: No Advance Directives: No Advance Directives Information Provided: Yes service: No Current occupational status: employed Current occupation: [employer] Current occupational exposures/hazards: No Cognitive needs: No Hearing needs: No Vision needs: No Physical Exam Vital Signs: Vital Signs: Last Vital Signs Temp 97.9 F 09/20/24 09:07 Pulse 86 09/20/24 09:07 Resp 20 09/20/24 09:07 BP 146/93 H 09/20/24 09:07 Pulse Ox 95 09/20/24 09:07 O2 Del Method Room Air 09/20/24 09:07 BMI result Body Mass Index 37.8 Hypertensive, vitals otherwise WNL. Afebrile. General: Well appearing, in no acute distress. Skin: Warm, dry, intact. No rashes or lesions. Head: Normocephalic, atraumatic. EENT: Hearing is intact b/l. Conjunctiva clear. Sclera is anicteric. PERRLA. EOM intact. Moist mucous membranes.? Neck: Supple without LAD Cardiac: Chest wall symmetric. RRR Lungs: Normal respiratory effort without accessory muscle use. CTA bilaterally Back: Midline lumbar spinous tenderness without step-off deformity, minimal lumbar paraspinal muscle tenderness to palpation, no palpable spasm, negative straight leg raise. no cvat. Ext: Upper and lower extremities atraumatic, without tenderness, deformity, swelling or erythema. Full ROM throughout. Strength 5/5 throughout. Neuro: AOx3. Normal speech. Strength 5/5 intact throughout. No saddle anesthesia. Sensation intact to light touch. NV intact distally. Reflexes 2+ bilaterally. Ambulating with steady gait. Psych: Appropriate mood and affect. Responds appropriately to questions. Course Course Course Narrative: 1214 -- xr without fracture. there are mild degenerative changes to L5/S1. Discussed results with patient. will send flexeril and lido patches to pharmacy. advised to take tylenol/ motrin at home. Patient has remained stable throughout ED visit today. Discussed worrisome signs and symptoms and when to return to the ED. All questions answered at this time. Patient is agreeable with disposition and stable for discharge. Medications Administered Discontinued Medications Generic Name Dose Route Start Last Admin Trade Name Freq PRN Reason Stop Dose Admin Cyclobenzaprine HCl 10 mg 09/20/24 10:20 09/20/24 10:35 Cyclobenzaprine Hcl 10 Mg Tablet PO 09/20/24 10:21 Not Given ONCE ONE Lidocaine 1 patch 09/20/24 10:20 09/20/24 10:34 Lidocaine 4 % Patch Adh..Patch TRANSDERMA 09/20/24 10:21 1 patch ONCE ONE Administration Protocol Medical Decision Making Medical Decision Making MDM Narrative: 34 year old male with pmhx significant for prostatitis, erectile dysfunction, HTN presents to the ED today for evaluation of low back pain s/p mechanical fall 5 days ago. Patient hypertensive to 146/93, vitals otherwise WNL. Afebrile. He is nontoxic appearing in no acute distress. Lying comfortably on the exam bed. On exam, there is midline spinous tenderness over lumbar spine without palpable step-off deformity. Minimal bilateral paraspinal muscle tenderness without palpable spasm. Negative straight leg raise. Sensation and strength intact throughout. 2+ patellar DTRs bilaterally. Ambulating with steady gait. Differential diagnosis includes MSK sprain/strain, spasm, fracture, subluxation, disc herniation, sciatica. Presentation not consistent with cord compression, cauda equina, Guillain-Barstow, epidural abscess, nephrolithiasis, renal colic, urinary tract infection. Patient states that he did drive here today however can get a ride home if he receives muscle laceration. Plan for imaging, pain control, re-evaluation. Differential Diagnosis Differential Diagnoses: The differential diagnosis associated with the presentation includes as above Admission/Observation Not indicated. Independent Interpretation I performed an independent interpretation of an: Plain X-Ray Interpretation: xr lumbar spine without fracutre Radiology Impression Discussion of test interpretation with radiology: I have reviewed the radiologist's reading. Radiologist Impression: EXAMINATION: XR LUMBOSACRAL SPINE CLINICAL INFORMATION: Pain status post fall COMPARISON: None available. TECHNIQUE: Three views of the lumbosacral spine. FINDINGS: Minor endplate spurring particularly at L5 and S1 without disc space narrowing. No spondylolysis. The vertebral bodies and posterior elements are normal. The disc spaces are preserved and the vertebral alignment is normal. The paraspinal soft tissues are normal. XR/XR lumbar spine 2-3V IMPRESSION: No acute findings. Mild degenerative disc disease as above. Electronically signed by: Manfred Wolf MD 09/20/2024 11:53 AM [facility] External Record Review External record reviewed: Inpatient record Prescription Management I considered prescription management with: Pain Medication (lido patch) and Other (flexeril) Social Determinants Patient?s care significantly limited by Social Determinants of Health including: Other Social Determinant of Health Critical Care Time Critical Care Time Critical Care Time: No Discharge Plan Discharge Clinical Impression: Lumbar back pain Patient Disposition: Home, Self-Care Instructions: Back Pain (ED) Additional Instructions: You were evaluated in the Emergency Department today for your back pain.? Your evaluation did not show signs of medical conditions requiring emergent intervention at this time. Avoid bending, lifting, or twisting. Use ice several times per day for 20 minutes at a time for the next 48 hours and then change to heat. We recommend you take 600mg ibuprofen every 6 hours or tylenol 650mg every 6 hours as needed for pain. If needed, you can alternate these medications so that you take one medication every 3 hours. For example, at noon take ibuprofen, then at 3pm take tylenol, then at 6pm take ibuprofen. Flexeril is a muscle relaxer. Take this at night as it makes you drowsy. Do not drive, drink alcohol, or operate machinery while taking it. Lidoderm patches are numbing patches. Apply to painful areas. Please schedule an appointment for follow-up with your primary care provider this week for further evaluation of your symptoms. Return to the Emergency Department if you experience worsening back pain, difficulty walking, fevers, numbness, tingling, incontinence, or any other concerning symptoms. In the case of an emergency call 911. Prescriptions: No Action (DME) blood pressure test kit-large Kit See Rx Instructions .Route Qty: 1 0RF Rx Instructions: As directed tadalafil [Cialis] 10 mg tablet 10 mg PO DAILY PRN Rx Instructions: administer approximately 30min before sexual activity; do not use more than 1 dose per 24hrs tadalafil [Cialis] 5 mg tablet 5 mg PO DAILY Qty: 90 3RF tadalafil [Cialis] 20 mg tablet 20 mg PO .COMPLEX Qty: 30 3RF Rx Instructions: 20 mg orally 2x a week as needed; Referrals: Ronald Myrick PA-C [Primary Care Provider] - Stand Alone Forms: Work/School Release Print Language: Irish
[2024-09-20] MEDS: Lidocaine 4 % Patch ADH..PATCH 1 PATCH TRANSDERMA (10:34)
[2024-09-20 12:21] VITALS: BP 146/93; PULSE 86; RESP 20; TEMP 36.6; O2SAT 95
== END 2024-09-20 12:22 | disposition home or self-care (01) ==
PROVIDERS: Emergency Provider Emergency Medicine; PCP Physician Assistant
DX: M54.50 Low back pain, unspecified (principal); Z91.81 History of falling; I10 Essential (primary) hypertension; Z79.899 Other long term (current) drug therapy
CPT/HCPCS: 72100; 99282; 99283

== ENCOUNTER 2024-12-16 15:39 | Outpatient (AMB) | payer BC, SELFPAY ==
--- NOTE | 2024-12-16 15:48 | A.OFFPC_ITS ---
Vital Signs 12/16/24 15:49 Height 5 ft 11 in Weight 273 lb BMI 38.1 BP 142/98 H Blood Pressure Location Lt brachial Position Sitting Pulse 66 Pulse Source Pulse Oximeter Pulse Oximetry (%) 96 Oxygen Delivery Method Room Air Intake Visit Reasons: referral Call Center Support Representative Required: No Accompanied by: Self / Same As Patient Allergies No Known Allergies [No Known Allergies*] Allergy (Verified 12/16/24 16:10) Medication List - Last Reconciled 12/16/24 by Ronald Myrick PA-C blood pressure test kit-large As directed tadalafil (Cialis) 5 mg PO DAILY Tobacco use date assessed: 12/16/24 Dental Screening Dental Screen Date: 12/16/24 Did you have a dental visit in the last 12 months?: Yes Did you have a dental problem in the last 6 months where you did not have access to dental care?: No Was dental information given to patient?: Patient has dentist HPI referral HPI Details The patient is a 34 year old male presenting with erectile dysfunction and concerns about weight gain. The patient reports chronic erectile dysfunction, describing it as persistent weird erectile dysfunction, which has not improved despite taking 20 mg of a prescribed medication (likely Tadalafil). The issue has been ongoing, with previous normal testosterone levels measured (last noted in 2022 as 421 ng/dL against a normal range of 250-1,100 ng/dL). The patient describes associated weight gain, with a current weight of 273 lbs, significantly above his usual range of around 230-235 lbs. Dietary habits are suboptimal, with challenges in maintaining consistent healthy eating patterns amidst job-related stress. Previous consultation with a urologist and integrated medicine specialists have not concluded testosterone therapy nor identified a clear underlying cause. The patient has no current concerns with mental health but has had therapy for non-severe anxiety and stress. Recent vital signs revealed blood pressure readings of 142/98 mmHg, indicating elevated blood pressure not previously monitored at home. [facility] Medical History Orchalgia Urethritis Testicle pain Chronic prostatitis Surgical History History of appendectomy Family History Mother High blood pressure Father No problems noted. Social History Housing: Apartment Alcohol intake: current Alcohol intake frequency: a few times a week Alcohol type: beer Patient Tobacco Use Status: Never used Tobacco e-Cigarette/Vaping Use: Never Used Second Hand Smoke Exposure: No service: No Current occupational status: employed Current occupation: [employer] Current occupational exposures/hazards: No Cognitive needs: No Hearing needs: No Vision needs: No Questionnaire PHQ-9 Over the last 2 weeks, how often have you been bothered by any of the following problems? 1. Little interest or pleasure in doing things: not at all 2. Feeling down, depressed, or hopeless: not at all 3. Trouble falling or staying asleep, or sleeping too much: not at all 4. Feeling tired or having little energy: not at all 5. Poor appetite or overeating: not at all 6. Feeling bad about yourself - or that you are a failure or have let yourself or your family down: not at all 7. Trouble concentrating on things, such as reading the newspaper or watching television: not at all 8. Moving or speaking so slowly that other people could have noticed. Or the opposite - being so fidgety or restless that you have been moving around a lot more than usual: not at all 9. Thoughts that you would be better off or of hurting yourself in some way: not at all Total score: 0 Depression Screening Interpretation: Negative Depression Screening Done: Yes 32892 - PHQ-9 Billing: Yes Source: Developed by Drs. Rodrick Mackay, Elis Velasquez, Ashok Taylor and colleagues, with an educational kia from [employer]. Thrive Questionnaire Date Thrive assessed: 12/16/24 I am a: Patient What is your living situation today?: I have a steady place to live Within the past 12 months, did the food you bought not last and you didn't have the money to get more?: Never true Within the past 12 months, did you worry whether your food would run out before you got money to buy more?: Never true Do you have trouble paying for medicines?: No Do you have trouble getting transportation to medical appointments?: No Do you have trouble paying your heating and electricity bill?: No Do you have trouble taking care of your child, family member or friend?: No Do you have trouble with day-to-day activities such as bathing, preparing meals, shopping, managing finances, etc.?: No Are you currently unemployed and looking for a job?: No Are you interested in more education?: No Please select the resources that you would like help with: None Currently or been in a relationship where the following occur: No concerns reported THRIVE Score: 0 AUDIT C Alcohol Use Questionnaire (AUDIT-C) 1. How often do you have a drink containing alcohol?: Monthly or less 2. How many drinks containing alcohol do you have on a typical day when you are drinking?: 3 or 4 3. How often do you have six or more drinks on one occasion?: Less than monthly Total Score: 3 KRISS-7 AMB Questionnaire KRISS-7 Date KRISS - 7 assessed: 12/16/24 Feeling nervous, anxious, or on edge: 0 = Not at all Not being able to stop or control worryin = Not at all Worrying too much about different things: 0 = Not at all Trouble relaxin = Not at all Being so restless that it is hard to sit still: 0 = Not at all Becoming easily annoyed or irritable: 0 = Not at all Feeling afraid as if something awful might happen: 0 = Not at all Total KRISS-7 score (0-4 normal; 5-9 mild; 10-14 moderate; 15-21 severe): 0 Source: Developed by Drs. Rodrick Mackay, Elis Velasquez, Ashok Tyalor and colleagues, with an educational kia from [employer]. KRISS-7 Assessment Billing KRISS-7 Assessment Tool: KRISS-7 Assessment 10191 Review of Systems Const Denies headache(s) Eyes Denies loss of vision ENT Denies vertigo, Denies dizziness, Denies headache(s) and Denies sore throat Card Denies chest pain, Denies leg edema and Denies lightheadedness Resp Denies cough, Denies hemoptysis and Denies wheezing GI Denies abdominal pain, Denies melena, Denies constipation, Denies diarrhea and Denies vomiting Denies dysuria, Denies urinary frequency and Denies urinary urgency Musc Denies arthralgias, Denies joint swelling, Denies numbness and Denies tingling Neuro Denies Abnormal speech present, Denies behavioral changes, Denies vertigo, Denies dizziness, Denies headache(s), Denies loss of vision, Denies memory loss, Denies numbness and Denies tingling Psych Denies anxiety, Denies behavioral changes, Denies depression, Denies memory loss and Denies panic attacks Thomas/Lymph Denies easy bleeding and Denies easy bruising Aller/Immun Denies wheezing Physical exam (Primary Care) Vital Signs: Last Vital Signs Pulse 66 12/16/24 15:49 BP 142/98 H 12/16/24 15:49 Pulse Ox 96 12/16/24 15:49 Oxygen Delivery Method Room Air 12/16/24 15:49 BMI result Body Mass Index 38.1 BMI Assessment/Plan discussion: High BMI High, discussed plan: lifestyle, weight reduction, dietary and physical activity Tobacco/Smoking Status: Tobacco use Status Tobacco use date assessed 12/16/24 12/16/24 15:55 Patient Tobacco Use Status Never used Tobacco 12/16/24 15:55 Tobacco use type 12/16/24 15:55 e-Cigarette/Vaping Use Never Used 12/16/24 15:55 PHQ-9: PHQ-9 Score PHQ-9: Total score 0 12/16/24 16:15 Depression Screening Interpretation: Negative Thrive Assessment: Date of Thrive Assessment Date Thrive assessed 12/16/24 12/16/24 15:55 Currently or been in a relationship where the following occur: No concerns reported Const General: healthy appearing, no acute distress, alert and awake Nutritional Appearance: well nourished Orientation/consciousness: oriented to person, oriented to place and oriented to time [facility] Ears: TM's normal bilaterally General nose exam: Normal nasal mucous membranes and turbinates present Eyes Conjunctivae: conjunctivae normal Sclerae: sclerae normal Pupils: Equal, round and reactive pupils present Neck Neck: Yes no lymphadenopathy and Yes no JVD Thyroid: Thyroid normal Carotids: no bruits Resp Effort & Inspection: normal respiratory effort and not tachypneic Auscultation: no crackles, no rales, no rhonchi and no wheezes Cardio Rate: regular rate Rhythm: regular rhythm Heart sounds: no murmurs and normal S1 and S2 GI Palpation (GI): Soft to palpation, nontender, no hepatomegaly and no splenomegaly Auscultation: normal bowel sounds Skin General skin exam: no rashes or lesions noted and dry skin Neuro General: oriented to person, oriented to place and oriented to time Cranial nerves: Yes Equal, round and reactive pupils present Speech: No Abnormal speech present Gait exam (Neuro): Normal gait present Motor exam (neuro): no tremor noted Extrem Right upper extremity: full ROM Left upper extremity: full ROM Right lower extremity: full ROM; no edema Left lower extremity: full ROM; no edema Psych Mental Status: mental status grossly normal Speech and movement: Normal speech and movement present Affect: normal affect Attitude: cooperative Thought process: Normal thought process present Coding Level of Care Code Est Pt Level 4 (76075) Diagnoses HTN (hypertension), benign I10 Erectile disorder due to medical condition in male N52.1 Class 2 obesity E66.812 Additional Codes KRISS-7 Assessment Billing - KRISS-7 Assessment Tool: KRISS-7 Assessment 71850 ([id number]) PHQ-9 - 58967 - PHQ-9 Billing: Yes ([id number]) Assessment & Plan Assessment & Plan (1) HTN (hypertension), benign: Code(s): I10 - Essential (primary) hypertension Category: Medical Plan: Patient's blood pressure remains elevated today in office. He has not been monitoring his blood pressure at home he. Unfortunately has gained a lot of weight over the last few years. He is starting to work on his diet and being more physically active. Will supply patient with a paper Rx for blood pressure cuff to do home blood pressure monitoring. He is willing to start low-dose hydrochlorothiazide for better blood pressure control. (2) Erectile disorder due to medical condition in male: Code(s): N52.1 - Erectile dysfunction due to diseases classified elsewhere Category: Medical Plan: I discussed the concerns related to erectile dysfunction and possible obesity consequences on health with the patient. We reviewed the normal testosterone level and deduced that testosterone replacement therapy is not currently indicated based on previous evaluations. (3) Class 2 obesity: Code(s): E66.812 - Obesity, class 2 Category: Medical Plan: Patient does understand his BMI is over 35 and will work on being more physically active and adapting to better eating habits to reduce his weight. Orders: Orders Comprehensive [place]. Panel Fast 12/16/24 I10 - Essential (primary) hypertension Microalbumin, Random (w Creat) 12/16/24 I10 - Essential (primary) hypertension Complete Blood Count no Diff 12/16/24 I10 - Essential (primary) hypertension Testosterone, Free/Total 12/16/24 R79.89 - Other specified abnormal findings of blood chemistry Medications: New hydrochlorothiazide 12.5 mg PO DAILY 90 tabs 1RF 90 days I10 - Essential (primary) hypertension Refilled blood pressure test kit-large As directed 1 ea 0RF I10 - Essential (primary) hypertension
[2024-12-16 15:49] VITALS: BP 142/98; PULSE 66; O2SAT 96; BMI 38.1
--- OUTSIDE RECORDS SUMMARY | 2024-12-16 16:14 | XMS_ITS | Clinical Summary ---
Author Organization Formerly [facility] Address [address] [place] [address] Care Team Providers Care Fold Skiver Name Role Phone Unavailable Primary Care Provider Unavailabl e Social History Tobacco Use Types Packs/Day Years Used Date Smoking Tobacco: Never Assessed Sex and Gender Information Value Date Recorded Sex Assigned at Not on file Gender Identity Not on file Sexual Orientation Not on file Plan of Treatment Health Maintenance Due Date Last Done Comments Hepatitis C Virus Screening 1989 HIV Screening 2002 DTaP/Tdap/Td Vaccines (1 - Tdap) 2008 Hepatitis B Vaccines (1 of 3 - 19+ 3-dose series) 2008 COVID-19 Vaccine (2023-2 5 season) 2024 HPV Vaccines Aged Out No longer eligi ble based on patient's age to complete this topic Pneumococcal Vaccine: Pediat florentin (0-5 Years) and At-Risk Patients (6 to 49 Years) Aged Out No longer eligible b ased on patient's age to complete this topic
--- OUTSIDE RECORDS SUMMARY | 2024-12-16 16:14 | XMS_ITS | Clinical Summary ---
Author Organization [facility] Address [address] [place] [address] Phone Care Team Providers Care Dog Walker Name Role Phone Soto Rodrick Ellis Primary Care Provider [phone] Immunizations Immunization Administration Dates Next Due DTP 02/21/1994, 1,1989,10/22,1989 H1N1 11/25/2009 Hep B, ped/adol 01/04/2001,07/23/2000,06/22/2000 Hib (PRP-T) 09/06/1990 Influenza, injectable, trivalent 11/25/2009 MMR 06/22/2000,09/06/1990 Meningococcal Conj (Menactra) MCV4P 08/22/2007 OPV 02/21/1994, 1,1989,08/22 Td (adult) (MBL), 2 Lf tetan us toxoid, PF, adsorbed 07/02/2000 Tdap 08/22/2007 Family History Relation Name Status Comments Mother Alive Mother: Alive a nd well Other Family history of Asthma, Family history of Elevated cholesterol, Family history of Migraines Social History Tobacco Use Types Packs/Day Years Used Date Smoking Tobacco: Never Assessed Sex and Gender Information Value Date Recorded Sex Assigned at Not on file Legal Sex Male 4:46 PM EDT Gender Identity Not on file Sexual Orientation Not on file Plan of Treatment Health Maintenance Due Date Last Done Comments Varicella Vaccines (1 of 2 - 13+ 2-dose series) 2002 Consider Men B Vaccine (1 of 2 - Bexsero 2-dose series) 2005 DTaP,Tdap,and Td Vaccines (7 - Td or Tdap) 08/22/2017 08/22/2007, 07/02/2000, 02/21/1994, Additional history exists Influenza Vaccines (#1) 2024 11/25/2009 COVID-19 Vaccine ( season) 2024 HIB Vaccines Aged Out 09/06/1990 No longer eligi ble based on patient's age to complete this topic IPV Vaccines Completed 02/21/1994, 04/0 11/1990, 1989, Additional history exists MMR Vaccines Completed 06/22/2000, 09/06/1990 Hepatitis B Vaccines Completed 01/04/2001, 07/23/2000, 06/22/2000 Meningococcal Vaccine Completed 08/22/2007 HPV Vaccines Aged Out No longer eligi ble based on patient's age to complete this topic Hepatitis A Vaccines Aged Out No long er eligible based on patient's age to complete this topic Men B Vaccine Aged Out No longer elig ible based on patient's age to complete this topic Pneumococcal Vaccine Aged Out No long er eligible based on patient's age to complete this topic Care Teams Dog Walker Relationship Specialty Start Date End Date Rodrick Soto [address] [place] [address] PCP - General 06/15/17
--- OUTSIDE RECORDS SUMMARY | 2024-12-16 16:14 | XMS_ITS | Encounter Summary ---
Author Organization [facility] Address [address] [place] [address] Phone Care Team Providers Care Aml Analyst Name Role Phone Rodrick Soto Primary Care Provider [phone] Encounter Details Date Type Department Care Team (Late st Contact Info) Description 2017 Conversion Encounter [facility] [place] [address] [place] [address] Social History Tobacco Use Types Packs/Day Years Used Date Smoking Tobacco: Never Assessed Sex and Gender Information Value Date Recorded Sex Assigned at Not on file Legal Sex Male 4:46 PM EDT Gender Identity Not on file Sexual Orientation Not on file documented as of this encounter Plan of Treatment Not on file documented as of this encounter Visit Diagnoses Not on filedocumented in this encounter Care Teams Aml Analyst Relationship Specialty Start Date End Date Rodrick Soto [address] [place] [address] PCP - General 06/15/17 documented as of this encounter
== END 2024-12-16 16:24 | disposition home or self-care (01) ==
PROVIDERS: PCP Physician Assistant; Visit Provider Physician Assistant
DX: I10 Essential (primary) hypertension (principal); N52.1 Erectile dysfunction due to diseases classified elsewhere; E66.812 Obesity, class 2; Z68.38 Body mass index [BMI] 38.0-38.9, adult

== ENCOUNTER → 2024-12-16 15:39 | Outpatient (BNVA) | payer BC, SELFPAY | PROVIDERS: PCP Physician Assistant; Visit Provider Physician Assistant | DX: I10 Essential (primary) hypertension (principal); N52.1 Erectile dysfunction due to diseases classified elsewhere; E66.812 Obesity, class 2; Z68.38 Body mass index [BMI] 38.0-38.9, adult | CPT/HCPCS: 96127 ==

== ENCOUNTER 2025-07-13 09:56 | Outpatient (AMB) | payer OTHER, SELFPAY ==
[2025-07-13 10:05] VITALS: BP 128/88; PULSE 82; TEMP 36.7; O2SAT 96; BMI 37.1
--- NOTE | 2025-07-13 10:05 | MHC.OFFWIV ---
Intake Vital Signs 07/13/25 10:05 Height 5 ft 11 in Weight 266 lb BMI 37.1 BP 128/88 Blood Pressure Location Rt brachial Position Sitting Pulse 82 Pulse Source Pulse Oximeter Temp 98.1 F Temp Source Oral Pulse Oximetry (%) 96 Oxygen Delivery Method Room Air Intake Visit Reasons: EP Lower back pain, down lt leg/lt foot numb Intake Note: pt present with lefit sided low back pain radiating down to numb toes x1 week Patient Tobacco Use Status: Never used Tobacco Allergies No Known Allergies (No Known Allergies*) Allergy (Verified 07/13/25 10:07) Medication List - Last Reconciled 07/13/25 by Angelica Jalloh NP blood pressure test kit-large As directed Do you need a note to return to daycare/school/sports/work: No HPI HPI Comments History of Present Illness Details 35 y/o Male patient who presents to the walk in clinic with c/o Left sided Low Back pain radiating down to his lower LE. Denies Injury or Trauma to the Back. He does go to the Gym daily but denies any weight lifting. Denies Urinary or Bowel problems. Reports some mild numbness on his left Foot/Toes. [facility] Medical History (Updated 07/13/25 @ 10:15 by Angelica Jalloh NP) Lumbosacral strain Orchalgia Urethritis Testicle pain Chronic prostatitis Surgical History History of appendectomy Family History Mother High blood pressure Father No problems noted. Social History Housing: Apartment Alcohol intake: current Alcohol intake frequency: a few times a week Alcohol type: beer Patient Tobacco Use Status: Never used Tobacco e-Cigarette/Vaping Use: Never Used Second Hand Smoke Exposure: No service: No Current occupational status: employed Current occupation: [employer] Current occupational exposures/hazards: No Cognitive needs: No Hearing needs: No Vision needs: No Review of Systems Const All systems reviewed & are unremarkable except as noted in HPI and below Physical Exam Vital Signs: Last Vital Signs Temp 98.1 F 07/13/25 10:05 Pulse 82 07/13/25 10:05 BP 128/88 07/13/25 10:05 Pulse Ox 96 07/13/25 10:05 Oxygen Delivery Method Room Air 07/13/25 10:05 BMI result Body Mass Index 37.1 Const General: no acute distress Nutritional Appearance: obese Orientation/consciousness: patient oriented x3 Back/Spine/Pelvis Back: back tenderness Thoracic/Lumbar Spine: pain with thoraco-lumbar ROM, thoraco-lumbar spasm and lumbar spinal tenderness Neuro General: patient oriented x3, gait normal and moves all extremities Psych Speech and movement: Normal speech and movement present Assessment & Plan Assessment & Plan (1) Lumbosacral strain: Code(s): S39.012A - Strain of muscle, fascia and tendon of lower back, initial encounter Plan: Ordered Meloxicam and Acetaminophen Ordered Flexeril Rest, Ice/Hot Medications: New meloxicam 7.5 mg PO DAILY 20 tabs 0RF 7 days S39.012A - Strain of muscle, fascia and tendon of lower back, initial encounter acetaminophen 1,000 mg (2 x 500 mg) PO Q6H PRN 20 caps 0RF pain S39.012A - Strain of muscle, fascia and tendon of lower back, initial encounter cyclobenzaprine 10 mg PO BEDTIME 14 tabs 0RF 7 days M54.6 - Pain in thoracic spine Coding Level of Care Code Est Pt Level 4 (91386) Diagnoses Lumbosacral strain S39.012A Time Spent (min) 20
--- OUTSIDE RECORDS SUMMARY | 2025-07-13 11:35 | XMS_ITS | Clinical Summary ---
Author Organization [facility] Address [address] [place] [address] Phone Care Team Providers Care Driver Sales Name Role Phone Soto Rodrick Ellis Primary Care Provider [phone] Immunizations Immunization Administration Dates Next Due DTP [...] of 2 - 13+ 2-dose series) 2002 HPV Vaccines (1 - 3-dose SCDM series) 2016 DTaP,Tdap,and Td Vaccines (7 - Td or Tdap) 08/22/2017 08/22/2007, 07/02/2000, 02/21/1994, Additional history exists Influenza Vaccines (#1) 2025 11/25/2009 COVID-19 Vaccine ( season) 2025 HIB Vaccines Aged Out 09/06/1990 No longer eligi ble based on patient's age to complete this topic IPV Vaccines Completed 02/21/1994, 04/0 11/1990, 1989, Additional history exists MMR Vaccines Completed 06/22/2000, 09/06/1990 Hepatitis B Vaccines Completed 01/04/2001, 07/23/2000, 06/22/2000 Meningococcal Vaccine Completed 08/22/2007 Hepatitis A Vaccines Aged Out No long er eligible based on patient's age to complete this topic Men B Vaccine Aged Out No longer elig ible based on patient's age to complete this topic Pneumococcal Vaccine Aged Out No long er eligible based on patient's age to complete this topic Care Teams Driver Sales Relationship Specialty Start Date End Date Rodrick Soto [address] [place] [address] PCP - General 06/15/17
--- OUTSIDE RECORDS SUMMARY | 2025-07-13 11:35 | XMS_ITS | Patient Health Record ---
Author Organization [facility] Address [address] [place] [address] Care Team Providers Care Trainmaster Name Role Phone Jossue Garland MD Primary Care Provider Ruy Banuelos Jr Unavailable Reason For Referral No Information Social History Tobacco Use: Social History Observation Description Date Details (start date - stop date) Never Smoker NA - NA Tobacco Use/Smoking Question Answer Notes Patient is a nonsmoker Alcohol Screen Question Answer Notes Did you have a drink contain ing alcohol in the past year? Yes Points 3 Interpretation Negative How often did you have a dri nk containing alcohol in the past year? 2 to 4 times a month (2 points) How many drinks did you have on a typical day when you were drinking in the past year? 3 or 4 drinks (1 point) Section Notes: Tobacco use negative. Alcoho l use is 4-5 drinks on weekends, none since December. 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
--- OUTSIDE RECORDS SUMMARY | 2025-07-13 11:35 | XMS_ITS | Clinical Summary ---
Author Organization [facility] Address [address] [place] [address] Phone Care Team Providers Care Veterinarian Small Animal Name Role Phone Ronald Myrick Primary Care Provider + Allergies No known active allergies Medications tadalafiL (CIALIS) 5 MG tablet Take 1 tablet by mouth every morning. 07/03/2023 Active Active Problems No known active problems Social History Tobacco Use Types Packs/Day Years Used Date Smoking Tobacco: Never Assessed Education Answer Date Recorded Are you interested in more education? Not on leticia e 09/16/2023 Are you concerned about learning? Not on file 09/16/2023 No 09/16/2023 No 09/16/2023 Digital Access Answer Date Recorded No 09/16/2023 No 09/16/2023 Reliable internet access at home? Not on file 09/16/2023 Device with a working camera? Not on file Sex and Gender Information Value Date Recorded Sex Assigned at Not on file Legal Sex Male 10:08 AM EST Gender Identity Not on file Sexual Orientation Not on file Last Filed Vital Signs Vital Sign Reading Time Taken Comments Blood Pressure 140/86 09/16/2023 11:04 AM EST Pulse 75 09/16/2023 11:04 AM EST Temperature 36.6 C (97.8 F) 09/16/2023 11:04 AM EST Respiratory Rate 18 09/16/2023 11:04 AM EST Oxygen Saturation 96% 09/16/2023 11:04 AM EST Inhaled Oxygen Concentration - - Weight 115.7 kg (255 lb) 09/16/2023 11:04 AM EST Height 180.3 cm (5' 11 ) 09/16/2023 11:04 AM EST Body Mass Index 35.57 09/16/2023 11:04 AM EST Plan of Treatment Health Maintenance Due Date Last Done Comments LIPID PANEL 1989 DEPRESSION SCREENING 2001 SMOKING Hx and SMOKELESS TOBACCO SCREENING 2002 HEPATITIS C SCREENING 2007 HIV ONE-TIME SCREENING (18-6 5 YEARS) 2007 SCREENING FOR DIABETES 2024 INFLUENZA VACCINE (#1) 2025 COVID-19 VACCINE (2024-2 6 season) 2025 03/16/2021, 02/21/2021 Adult Td,Tdap Booster 10/07/2029 10/07/2019 , 08/22/2007 HEPATITIS A VACCINES Aged Out No long er eligible based on patient's age to complete this topic HIB VACCINES Aged Out No longer eligi ble based on patient's age to complete this topic MENINGOCOCCAL VACCINES (ACWY) Aged Out No longer eligible based on patient's age to complete this topic MENINGOCOCCAL VACCINES (B) Aged Out N o longer eligible based on patient's age to complete this topic PNEUMOCOCCAL VACCINES (0-49 years) Aged Out No longer eligible b ased on patient's age to complete this topic Medical Devices Not on file [facility] H[facility] Care Teams Veterinarian Small Animal Relationship Specialty [place] [address] [place] [address] PCP - General Physician Cullet Washer 09/16/23 Additional Source Comments The information contained in this document represents components of the legal health record. It is not the complete legal health record.[facility]
--- OUTSIDE RECORDS SUMMARY | 2025-07-13 11:35 | XMS_ITS | Encounter Summary ---
Author Organization [facility] Address [address] [place] [address] Phone Care Team Providers Care Press Set Up Name Role Phone Rodrick Soto Primary Care Provider [phone] Encounter Details Date Type Department Care Team (Late st Contact Info) Description 2017 Conversion Encounter [facility] [place] [address] [place] [address] Social History Tobacco Use Types Packs/Day Years [...] on filedocumented in this encounter Care Teams Press Set Up Relationship Specialty Start Date End Date Rodrick Soto [address] [place] [address] PCP - General 06/15/17 documented as of this encounter
--- OUTSIDE RECORDS SUMMARY | 2025-07-13 11:35 | XMS_ITS | Clinical Summary ---
Author Organization [facility] Address [address] [place] [address] Care Team Providers Care Machine Striper Name Role Phone Unavailable Primary Care Provider Unavailabl e Social History Tobacco Use Types Packs/Day Years Used Date Smoking Tobacco: Never Assessed Sex and Gender Information Value Date Recorded Sex Assigned at Not on file Legal Sex Male 10:13 AM EDT Gender Identity Not on file Sexual Orientation Not on file Plan of Treatment Health Maintenance Due Date Last Done Comments Hepatitis C Virus Screening 1989 HIV Screening 2002 DTaP/Tdap/Td Vaccines (1 - Tdap) 2008 Hepatitis B Vaccines (1 of 3 - 19+ 3-dose series) 2008 HPV Vaccines (1 - 3-dose SCD M series) 2016 COVID-19 Vaccine ( - 2023-2 5 season) 2025 Pneumococcal Vaccine: Pediat florentin (0-5 Years) and At-Risk Patients (6 to 49 Years) Aged Out No longer eligible b ased on patient's age to complete this topic
== END 2025-07-13 12:18 | disposition home or self-care (01) ==
PROVIDERS: PCP Physician Assistant; Visit Provider Nurse Practitioner Family
DX: S39.012A Strain of muscle, fascia and tendon of lower back, initial encounter (principal)

== ENCOUNTER → 2025-07-13 09:56 | Outpatient (BNVA) | payer OTHER, SELFPAY | PROVIDERS: PCP Physician Assistant; Visit Provider Nurse Practitioner Family | DX: S39.012A Strain of muscle, fascia and tendon of lower back, initial encounter (principal); M54.6 Pain in thoracic spine; X58.XXXA Exposure to other specified factors, initial encounter; Y93.9 Activity, unspecified; Y92.9 Unspecified place or not applicable; Y99.9 Unspecified external cause status | CPT/HCPCS: 99212 ==

== ENCOUNTER 2025-08-06 09:41 | Outpatient (REF) | payer OTHER, SELFPAY ==
--- NOTE | ~2025-08-06 | XR_ITS ---
EXAMINATION: XR LUMBOSACRAL SPINE WITH OBLIQUES CLINICAL INFORMATION: S39.012A - Strain of muscle, fascia and tendon of lower back, initial en... COMPARISON: September 20, 2024 TECHNIQUE: AP, oblique and lateral views FINDINGS: Endplate sclerosis and small marginal osteophyte formation with decreased intervertebral disc height at L5-S1. No acute cortical disruption or malalignment. No lytic or blastic lesions. Spina bifida occulta, S1, congenital. XR/XR lumbar spine 4V min IMPRESSION: Spondylosis, L5-S1. Electronically signed by: Tang Houser MD 08/06/2025 10:59 AM EDT
--- OUTSIDE RECORDS SUMMARY | 2025-08-06 10:45 | XMS_ITS | Clinical Summary ---
Author Organization [facility] Address [address] [place] [address] Phone Care Team Providers Care Printed Circuit Boards Inspector Name Role Phone Rodrick Soto Primary Care Provider [phone] Immunizations Immunization Administration Dates Next Due DTP [...] age to complete this topic Care Teams Printed Circuit Boards Inspector Relationship Specialty Start Date End Date Rodrick Soto [address] [place] [address] PCP - General 06/15/17
--- OUTSIDE RECORDS SUMMARY | 2025-08-06 10:45 | XMS_ITS | Clinical Summary ---
Author Organization [facility] Address [address] [place] [address] Phone Care Team Providers Care Sample Grinder Name Role Phone Ronald Myrick Primary Care [...] topic Medical Devices Not on file [facility] H[facility] Care Teams Sample Grinder Relationship Specialty [place] [address] [place] [address] PCP - General Physician Raw Mill Operator 09/16/23 Additional Source Comments The information contained in this document represents components of the legal health record. It is not the complete legal health record.[facility]
--- OUTSIDE RECORDS SUMMARY | 2025-08-06 10:45 | XMS_ITS | Patient Health Record ---
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
--- OUTSIDE RECORDS SUMMARY | 2025-08-06 10:45 | XMS_ITS | Encounter Summary ---
Author Organization [facility] Address [address] [place] [address] Phone Care Team Providers Care Paving Block Cutter Name Role Phone Rodrick Soto Primary Care Provider [phone] Encounter Details Date Type Department Care Team (Late st Contact Info) Description 2017 Conversion Encounter [facility] [place] [address] [place] [address] Social History Tobacco Use Types Packs/Day Years [...] on filedocumented in this encounter Care Teams Paving Block Cutter Relationship Specialty Start Date End Date Rodrick Soto [address] [place] [address] PCP - General 06/15/17 documented as of this encounter
--- OUTSIDE RECORDS SUMMARY | 2025-08-06 10:45 | XMS_ITS | Clinical Summary ---
Author Organization [facility] Address [address] [place] [address] Care Team Providers Care Gas Or Petroleum Operator Name Role Phone Unavailable Primary Care Provider [...]
== END 2025-08-06 09:42 | disposition home or self-care (01) ==
LOC: HO.XRAY 09:41
PROVIDERS: PCP Physician Assistant; Visit Provider Physician Assistant
DX: S39.012A Strain of muscle, fascia and tendon of lower back, initial encounter (principal)
CPT/HCPCS: 72110

== ENCOUNTER → 2025-08-06 09:46 | Outpatient (BNV) | payer OTHER, SELFPAY | PROVIDERS: PCP Physician Assistant; Visit Provider Radiology Diagnostic Radiology | DX: S39.012A Strain of muscle, fascia and tendon of lower back, initial encounter (principal); M47.817 Spondylosis without myelopathy or radiculopathy, lumbosacral region | CPT/HCPCS: 72110 ==

== ENCOUNTER 2025-09-03 08:15 | Outpatient (AMB) | payer OTHER, SELFPAY ==
--- NOTE | 2025-09-03 08:22 | MHC.OFFVIS ---
Vital Signs 09/03/25 08:28 Height 5 ft 11 in Weight 265 lb 6 oz BMI 37.0 BP 140/96 H Blood Pressure Location Lt brachial Position Sitting Pulse 75 Pulse Source Pulse Oximeter Pulse Oximetry (%) 100 Oxygen Delivery Method Room Air Intake Visit Reasons: Other spondylosis with myelopathy, lumbar region Intake Note: Pain today 5 Basket Bottom Machine Operator Required: No Accompanied by: Self / Same As Patient Allergies No Known Allergies (No Known Allergies*) Allergy (Verified 09/03/25 08:27) HPI Comments Details: The patient is a 35-year-old male presenting with low back pain radiating to the left leg. The pain began in May without a specific inciting event and has been persistent since then. The patient describes the pain as sharp and rates it between 8 to 9 out of 10 in severity, worsening throughout the day. The pain radiates from the left lower back to the left buttock and down to the left calf, with associated tingling and a sensation of the left foot feeling asleep. Reports left calf pain with walking and at rest. 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 The patient has not experienced similar pain in the past and has not undergone physical therapy previously. X-rays revealed arthritis and degenerative disc disease at L5-S1, but no MRI has been performed due to insurance requirements for prior physical therapy. The patient started Ozempic in April for weight management, denies personal history of diabetes. - Onset: Began in May without a specific trigger - Quality: Sharp pain, burning, pins and needles, numbness, aching, cramping - Location: Left lower back, radiating to left buttock and calf - Radiation: Down the left leg to the calf and left foot with numbness and tingling - Exacerbating factors: Worsens throughout the day, bending down, lifting, twisting, prolonged sitting - Relieving factors: None, tried Tylenol, cyclobenzaprine, meloxicam with minimal to no pain relief; walking - Interference: Affects daily activities and sleep - Affect: Pain impacts sleep and daily activities - Analgesia: Pain rated 8-9/10, considering naproxen and Tylenol Arthritis for management - Adverse Effects: None reported from current medications - Activities of Daily Living: Pain affects work and requires closer parking due to difficulty walking - Aberrant Drug Related Behaviors: None reported Oswestry Low Back Pain Disability Score=11 [facility] Medical History (Updated 09/03/25 @ 11:41 by MARION Rivas) Lumbosacral strain Orchalgia Urethritis Testicle pain Chronic prostatitis Surgical History History of appendectomy Family History Mother High blood pressure Father No problems noted. Social History Housing: Apartment Alcohol intake: current Alcohol intake frequency: a few times a week Alcohol type: beer Patient Tobacco Use Status: Never used Tobacco e-Cigarette/Vaping Use: Never Used Second Hand Smoke Exposure: No service: No Current occupational status: employed Current occupation: [employer] ([employer]) Current occupational exposures/hazards: No Cognitive needs: No Hearing needs: No Vision needs: No Review of Systems Const Details: - Musculoskeletal: Reports sharp pain in the left lower back radiating to the left leg, tingling in the left foot - Neurological: Reports tingling sensation in the left foot - General: Denies previous similar pain episodes All systems reviewed & are unremarkable except as noted in HPI and below Physical Exam Vital Signs: Last Vital Signs Pulse 75 09/03/25 08:28 BP 140/96 H 09/03/25 08:28 Pulse Ox 100 09/03/25 08:28 Oxygen Delivery Method Room Air 09/03/25 08:28 BMI result Body Mass Index 37.0 General: Appears afebrile. Alert and oriented. Mood and affect appropriate. Follows and participates in conversation appropriately. Respiratory effort is unlabored. No cough. Able to transition from sit to stand unassisted. Ambulates with bilaterally normal heel strike and toe off. General: Yes no CVA tenderness Back/Spine/Pelvis Other: Patient is able to walk and stand on heels and tip toes with no difficulties demonstrating good motor tone. Normal gait, no limping. Lumbar flexion and bending reproduces moderate to severe pain, extension reproduces mild pain. Demonstrates 5/5 strength of quadriceps bilaterally as well as flexion/dorsiflexion of bilateral feet against resistance. 2+ pedal pulses bilaterally. Straight leg rise with dorsiflexion negative bilaterally. +2 patellar and achilles reflexes bilaterally. Facet loading test positive bilaterally. Josh?s, and Stinchfield tests are negative bilaterally. No groin pain with I/E hip rotations. Valsalva maneuver negative. Back: no CVA tenderness Cervical Spine: cervical ROM normal, cervical muscular tenderness and No Cervical spine tenderness Thoracic/Lumbar Spine: thoracic and lumbar spine normal to inspection, No Thoracic/lumbar spine scar(s), Lasegue's sign negative, straight leg raise negative bilaterally, pain with thoraco-lumbar ROM, thoraco-lumbar ROM limited, No thoracic spinal tenderness and lumbar spinal tenderness (L4-S1) Pelvis: buttock tenderness on the left Sacroiliac joints: bilaterally nontender Results Reviewed Results Reviewed: XR LUMBOSACRAL SPINE WITH OBLIQUES 08/06/25 CLINICAL INFORMATION: S39.012A - Strain of muscle, fascia and tendon of lower back, initial en... COMPARISON: September 20, 2024 TECHNIQUE: AP, oblique and lateral views FINDINGS: Endplate sclerosis and small marginal osteophyte formation with decreased intervertebral disc height at L5-S1. No acute cortical disruption or malalignment. No lytic or blastic lesions. Spina bifida occulta, S1, congenital. IMPRESSION: Spondylosis, L5-S1. Assessment & Plan Assessment & Plan (1) Spondylosis of lumbar spine with myelopathy: Code(s): M47.16 - Other spondylosis with myelopathy, lumbar region Category: Medical (2) Chronic low back pain: Code(s): M54.50 - Low back pain, unspecified; G89.29 - Other chronic pain Category: Medical (3) Pain of left calf: Code(s): M79.662 - Pain in left lower leg Category: Medical Plan The plan for managing the patient's low back pain and left sided sciatica includes initiating physical therapy to improve mobility and reduce pain. If physical therapy does not alleviate symptoms, an MRI will be considered to further evaluate the condition of the lumbar spine and assess for nerve compression. US venous duplex of left leg will be conducted to follow up on left calf pain and rule out DVT. The patient is advised to use naproxen and Tylenol Arthritis for pain management, with instructions to take naproxen with food and to avoid daily use for extended periods. Lifestyle modifications, including using a standing desk, weight optimization and maintaining good posture, are recommended to alleviate pressure on the lumbar spine. Follow-up is planned after the completion of physical therapy to reassess symptoms and determine the need for further interventions. All questions and concerns have been answered and patient agreed with the treatment plan. Follow up after PT and sooner as needed. Patient was informed and verbally consented to the use of an ambient scribe for clinic note documentation during this visit. Orders: Orders US venous duplex LE LT Today M79.662 - Pain in left lower leg Medications: New naproxen 500 mg PO BID PRN 60 tabs 0RF pain 30 days G89.29 - Other chronic pain, M47.16 - Other spondylosis with myelopathy, lumbar region, M54.50 - Low back pain, unspecified acetaminophen ER (Tylenol Arthritis Pain) 1,300 mg (2 x 650 mg) PO Q12H PRN 120 tabs 0RF pain 30 days M47.16 - Other spondylosis with myelopathy, lumbar region Discontinued acetaminophen Discontinued Reason: Patient Completed Course 1,000 mg (2 x 500 mg) PO Q6H PRN 20 caps 0RF pain S39.012A - Strain of muscle, fascia and tendon of lower back, initial encounter Coding Level of Care Code New Pt Level 4 (14333) Diagnoses Spondylosis of lumbar spine with myelopathy M47.16 Chronic low back pain M54.50; G89.29 Pain of left calf M79.662
[2025-09-03 08:28] VITALS: BP 140/96; PULSE 75; O2SAT 100; BMI 37.0
--- OUTSIDE RECORDS SUMMARY | 2025-09-03 08:44 | XMS_ITS | Encounter Summary ---
Author Organization [facility] Address [address] [place] [address] Phone Care Team Providers Care Flush Tester Name Role Phone Rodrick Soto Primary Care Provider [phone] Encounter Details Date Type Department Care Team (Late st Contact Info) Description 2017 Conversion Encounter [facility] [place] [address] [place] [address] Social History Tobacco Use Types Packs/Day Years [...] on filedocumented in this encounter Care Teams Flush Tester Relationship Specialty Start Date End Date Rodrick Soto [address] [place] [address] PCP - General 06/15/17 documented as of this encounter
--- OUTSIDE RECORDS SUMMARY | 2025-09-03 08:44 | XMS_ITS | Clinical Summary ---
Author Organization [facility] Address [address] [place] [address] Phone Care Team Providers Care Base Draw Operator Name Role Phone Rodrick Soto Primary Care Provider [phone] Immunizations Immunization Administration Dates Next Due DTP [...] age to complete this topic Care Teams Base Draw Operator Relationship Specialty Start Date End Date Rodrick Soto [address] [place] [address] PCP - General 06/15/17
--- OUTSIDE RECORDS SUMMARY | 2025-09-03 08:45 | XMS_ITS | Clinical Summary ---
Author Organization [facility] Address [address] [facility] [address] [place] [address] Phone Care Team Providers Care Car Electronics Installer Name Role Phone Ronald Myrick Primary Care [...] topic Medical Devices Not on file Insurance [facility] Care Teams Car Electronics Installer Relationship Specialty [place] [address] [place] [address] PCP - General Physician Leather Scraper 09/16/23 Additional Source Comments The information contained in this document represents components of the legal health record. It is not the complete legal health record.[facility]
--- OUTSIDE RECORDS SUMMARY | 2025-09-03 08:45 | XMS_ITS | Clinical Summary ---
Author Organization [facility] Address [address] [place] [address] Care Team Providers Care Crew Clerk Name Role Phone Unavailable Primary Care Provider [...] series) 2008 COVID-19 Vaccine (2023-2 5 season) 2025 HPV Vaccines (No Doses Required) Completed Pneumococcal Vaccine: Pediat florentin (0-5 Years) and At-Risk Patients (6 to 49 Years) Aged Out No longer eligible b ased on patient's age to complete this topic
--- OUTSIDE RECORDS SUMMARY | 2025-09-03 08:46 | XMS_ITS | Patient Health Record ---
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
== END 2025-09-03 08:57 | disposition home or self-care (01) ==
PROVIDERS: PCP Physician Assistant; Visit Provider Nurse Practitioner Family
DX: M47.16 Other spondylosis with myelopathy, lumbar region (principal); M54.50 Low back pain, unspecified; G89.29 Other chronic pain; M79.662 Pain in left lower leg
CPT/HCPCS: 99204

== ENCOUNTER → 2025-09-03 | Outpatient (BNVA) | payer OTHER, SELFPAY | PROVIDERS: PCP Physician Assistant; Visit Provider Nurse Practitioner Family | DX: M47.16 Other spondylosis with myelopathy, lumbar region (principal); M54.50 Low back pain, unspecified; M79.662 Pain in left lower leg; G89.29 Other chronic pain | CPT/HCPCS: 99202 ==

== ENCOUNTER 2025-09-09 09:45 | Outpatient (REF) | payer OTHER, SELFPAY ==
--- NOTE | ~2025-09-09 | US_ITS ---
EXAMINATION: US TRIPLEX LOWER EXTREMITY, LEFT CLINICAL INFORMATION: Pain COMPARISON: None available. TECHNIQUE: Color-flow triplex imaging with spectral analysis and compression Doppler were performed on the left lower extremity. FINDINGS: Respiratory variation, normal compression and augmented flow are noted throughout the left lower extremity. The visualized common femoral vein, superficial femoral vein, profunda femoral vein, popliteal vein and midcalf peroneal and posterior tibial venous segments show no evidence of deep venous thrombosis. There is no Thayer's cyst. US/US venous duplex LE LT IMPRESSION: No evidence of deep venous thrombosis involving the left lower extremity. Electronically signed by: Ady Martinez MD 09/09/2025 10:41 AM EST
--- OUTSIDE RECORDS SUMMARY | 2025-09-09 11:03 | XMS_ITS | Encounter Summary ---
Author Organization [facility] Address [address] [place] [address] Phone Care Team Providers Care Set Staff Fitter Name Role Phone Rodrick Soto Primary Care Provider [phone] Encounter Details Date Type Department Care Team (Late st Contact Info) Description 2017 Conversion Encounter [facility] [place] [address] [place] [address] Social History Tobacco Use Types Packs/Day Years [...] on filedocumented in this encounter Care Teams Set Staff Fitter Relationship Specialty Start Date End Date Rodrick Soto [address] [place] [address] PCP - General 06/15/17 documented as of this encounter
--- OUTSIDE RECORDS SUMMARY | 2025-09-09 11:03 | XMS_ITS | Clinical Summary ---
Author Organization [facility] Address [address] [place] [address] Phone Care Team Providers Care Link Trainer Maintenance Worker Name Role Phone Rodrick Soto Primary Care Provider [phone] Immunizations Immunization Administration Dates Next Due DTP [...] age to complete this topic Care Teams Link Trainer Maintenance Worker Relationship Specialty Start Date End Date Rodrick Soto [address] [place] [address] PCP - General 06/15/17
--- OUTSIDE RECORDS SUMMARY | 2025-09-09 11:04 | XMS_ITS | Clinical Summary ---
Author Organization [facility] Address [address] [facility] [address] [place] [address] Phone Care Team Providers Care Band Bias Machine Operator Name Role Phone Ronald Myrick Primary Care [...] topic Medical Devices Not on file Insurance [facility] H[facility] Care Teams Band Bias Machine Operator Relationship Specialty [place] [address] [place] [address] PCP - General Physician News Assistant 09/16/23 Additional Source Comments The information contained in this document represents components of the legal health record. It is not the complete legal health record.[facility]
--- OUTSIDE RECORDS SUMMARY | 2025-09-09 11:04 | XMS_ITS | Clinical Summary ---
Author Organization [facility] Address [address] [place] [address] Care Team Providers Care Senior Game Advisor Name Role Phone Unavailable Primary Care Provider [...]
--- OUTSIDE RECORDS SUMMARY | 2025-09-09 11:04 | XMS_ITS | Patient Health Record ---
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
== END 2025-09-09 09:46 | disposition home or self-care (01) ==
LOC: HO.US 09:45
PROVIDERS: PCP Physician Assistant; Visit Provider Nurse Practitioner Family
DX: M79.662 Pain in left lower leg (principal)
CPT/HCPCS: 93971

== ENCOUNTER 2025-10-09 13:02 | Outpatient (REF) | payer OTHER, SELFPAY ==
--- OUTSIDE RECORDS SUMMARY | 2025-10-09 17:53 | XMS_ITS | Encounter Summary ---
Author Organization [facility] Address [address] [place] [address] Phone Care Team Providers Care Denitrator Operator Name Role Phone Rodrick Soto Primary Care Provider [phone] Encounter Details Date Type Department Care Team (Late st Contact Info) Description 2017 Conversion Encounter [facility] [place] [address] [place] [address] Social History Tobacco Use Types Packs/Day Years [...] on filedocumented in this encounter Care Teams Denitrator Operator Relationship Specialty Start Date End Date Rodrick Soto [address] [place] [address] PCP - General 06/15/17 documented as of this encounter
--- OUTSIDE RECORDS SUMMARY | 2025-10-09 17:53 | XMS_ITS | Clinical Summary ---
Author Organization [facility] Address [address] [place] [phone] Phone Care Team Providers Care Abalone Sheller Name Role Phone Rodrick Soto Primary Care Provider [phone] Immunizations Immunization Administration Dates Next Due DTP [...] age to complete this topic Care Teams Abalone Sheller Relationship Specialty Start Date End Date Rodrick Soto [address] [place] [address] PCP - General 06/15/17
[2025-10-10 01:57] LABS: CT PCR Urine NOT DETECTED (Not Detect.); NG PCR Urine NOT DETECTED (Not Detect.)
[2025-10-10 08:33] LABS: Syphilis Screen Nonreactive (Nonreactive)
[2025-10-10 08:50] LABS: HIV Num 1 0.05 S/CO (0.00-0.99); ~HepC Num1 0.12 S/CO (0.00-0.79); ~Hepatitis C Antibody Nonreactive (Nonreactive)
== END 2025-10-09 13:03 | disposition home or self-care (01) ==
LOC: HO.HMGCLDS 13:02
PROVIDERS: PCP Physician Assistant; Visit Provider Nurse Practitioner Family
DX: N48.1 Balanitis (principal); Z11.59 Encounter for screening for other viral diseases; Z20.2 Contact with and (suspected) exposure to infections with a predominantly sexual mode of transmission
CPT/HCPCS: 36415; 81003; 86780; 86803; 87389; 87491; 87591; 99212

== ENCOUNTER 2025-10-09 13:02 | Outpatient (AMB) | payer OTHER, SELFPAY ==
[2025-10-09 13:11] VITALS: BP 140/90; PULSE 79; O2SAT 98; BMI 37.7
--- NOTE | 2025-10-09 13:11 | MHC.OFFWIV ---
Intake Vital Signs 10/09/25 13:11 Height 5 ft 11 in Weight 270 lb BMI 37.7 BP 140/90 H Blood Pressure Location Rt brachial Position Sitting Pulse 79 Pulse Source Pulse Oximeter Pulse Oximetry (%) 98 Oxygen Delivery Method Room Air Intake Visit Reasons: EP-expose to chlamydia Intake Note: Patient presents c/o painful urination/ejaculation, redness at the tip x2 weeks. Potential exposure but unsure which one. Patient Tobacco Use Status: Never used Tobacco Allergies No Known Allergies (No Known Allergies*) Allergy (Verified 10/09/25 13:18) Do you need a note to return to daycare/school/sports/work: No HPI EP-expose to chlamydia HPI Details 35 year old male patient presents to the [place] clinic with report of urinary and penile symptoms over the last two weeks, following unprotected intercourse with a new female parter two weeks ago. He states he has burning with urination and painful ejaculation. He reportedly has been cleansing his penis in excess at home and now has irritation at the tip of his penis. Denies any penile discharge. Denies any fevers, chills or other symptoms. He has not inquired with new partner regarding presence of STIs. [facility] Medical History Lumbosacral strain Orchalgia Urethritis Testicle pain Chronic prostatitis Surgical History History of appendectomy Family History Mother High blood pressure Father No problems noted. Social History Housing: Apartment Alcohol intake: current Alcohol intake frequency: a few times a week Alcohol type: beer Patient Tobacco Use Status: Never used Tobacco e-Cigarette/Vaping Use: Never Used Second Hand Smoke Exposure: No service: No Current occupational status: employed Current occupation: [employer] Current occupational exposures/hazards: No Cognitive needs: No Hearing needs: No Vision needs: No Review of Systems Const All systems reviewed & are unremarkable except as noted in HPI and below Physical Exam Vital Signs: Last Vital Signs Pulse 79 10/09/25 13:11 BP 140/90 H 10/09/25 13:11 Pulse Ox 98 10/09/25 13:11 Oxygen Delivery Method Room Air 10/09/25 13:11 BMI result Body Mass Index 37.7 Const General: cooperative, healthy appearing, comfortable and no acute distress Resp Effort & Inspection: normal respiratory effort General: Yes no CVA tenderness Back/Spine/Pelvis Back: no CVA tenderness Skin General skin exam: no rashes or lesions noted Psych Appearance: grossly normal Mental Status: mental status grossly normal Speech and movement: Normal speech and movement present Assessment & Plan Assessment & Plan (1) Encounter for screening examination for sexually transmitted infection: Code(s): Z11.3 - Encounter for screening for infections with a predominantly sexual mode of transmission Plan: Urine sample obtained and will send out for GC/Chlamydia screen. Urine dip in the office negative for UTI. We discussed that results will be called to him once they are available. We reviewed safe sex practices and I offered patient serology for HIV, Hep C, RPR, which he would like and will go have drawn today. (2) Balanitis: Code(s): N48.1 - Balanitis Plan: Will send miconazole cream and we reviewed use of this. If this worsens or does not improve with treatment he can return to the [place] clinic or f/u with PCP. Orders: Orders Hepatitis C Antibody Today Z11.3 - Encounter for screening for infections with a predominantly sexual mode of transmission CT NG by PCR Urine Today Z11.3 - Encounter for screening for infections with a predominantly sexual mode of transmission HIV Ab/Ag Today Z11.3 - Encounter for screening for infections with a predominantly sexual mode of transmission Syphilis Screen Today Z11.3 - Encounter for screening for infections with a predominantly sexual mode of transmission Medications: New miconazole nitrate 2% Apply to irritated area twice a day for up to 14 days. 1 appl topical BID 14 grams 1RF N48.1 - Mika Coding Level of Care Code Est Pt Level 4 (44468) Diagnoses Encounter for screening examination for sexually transmitted infection Z11.3 Mika N48.1
--- OUTSIDE RECORDS SUMMARY | 2025-10-09 16:59 | XMS_ITS | Clinical Summary ---
Author Organization [facility] Address [address] [place] [address] Care Team Providers Care Busser Name Role Phone Unavailable Primary Care Provider [...]
--- OUTSIDE RECORDS SUMMARY | 2025-10-09 16:59 | XMS_ITS | Clinical Summary ---
Author Organization [facility] Address [address] [facility] [address] [place] [address] Phone Care Team Providers Care Learning Administrator Name Role Phone Ronald Myrick Primary Care [...] topic Medical Devices Not on file Insurance [facility] H[facility] Care Teams Learning Administrator Relationship Specialty [place] [address] [place] [address] PCP - General Physician Visual Arts Teacher 09/16/23 Additional Source Comments The information contained in this document represents components of the legal health record. It is not the complete legal health record.[facility]
== END 2025-10-09 13:49 | disposition home or self-care (01) ==
PROVIDERS: PCP Physician Assistant; Visit Provider Nurse Practitioner Family
DX: Z11.3 Encounter for screening for infections with a predominantly sexual mode of transmission (principal); N48.1 Balanitis; Z13.9 Encounter for screening, unspecified